=== PATIENT | male | born 1945 | race Caucasian/White ===

== ENCOUNTER 2018-01-19 21:09 | Observation (INO) | payer OTHER ==
[~2018-01-19] VITALS: Ht 180.3 cm; Wt 66.3 kg
[~2018-01-19 21:09] MED LIST: ACET325; AMLO5 PO; ASCO500; ASPI325; ATEN25; BISA10S; CHOL10002; CLOP75 PO; DOCU100; DOCU100 PO; ENOX100I; ENOX80I SC; FENT100TP; FENT50TP TOP; FENT75TP; FISH1000 PO; FLUO20; HYDACE10B PO; HYDR1TAB94 PO; LOVA20; LOVA40; LOVENOX; MORPHINE; MULVITMIND; NICO21TP; NORT25; OMEG1CAP30 PO; OXYC5; OXYC5 PO; PANT40 PO; POLY17UD PO; PRAV20 PO; PRED10; PREG300 PO; RANI150; TRAZ50; VARE1 PO; WARF5; [UNRECOGNIZED DRUG - REMARK]
[2018-01-19 21:37] LABS: Hematocrit 49.1 % (37.0-53.0); Mean Corpuscular HGB 30.1 pg (26.0-34.0); Mean Corpuscular HGB Conc 34.6 g/dL (31.5-36.5); Mean Corpuscular Volume 87 fL (80-100); Mean Platelet Volume 9.8 fL (9.1-12.4); Platelet Count 310 K/mm3 (150-400); RDW Coefficient Variation 12.5 % (11.7-14.2); RDW Standard Deviation 39.8 fL (35.1-46.3); Red Blood Cell Count 5.65 M/mm3 (4.30-5.90); White Blood Cell Count 13.24 K/mm3 (4.00-11.30)
[2018-01-19 21:55] LABS: Albumin, Blood 4.4 g/dL (3.4-5.0); Albumin/Globulin Ratio 1.1 (0.8-1.8); Bilirubin, Total 0.5 mg/dL (0.1-1.0); Bun/Creatinine Ratio 19.7 (12.0-20.0); Calcium, Blood 9.8 mg/dL (8.5-10.1); Creatinine, Blood 1.83 mg/dL (0.60-1.20); Globulin, Blood 4.1 g/dL (2.2-4.0); Potassium, Blood 4.4 mmol/L (3.5-5.5); Total Protein, Blood 8.5 g/dL (6.4-8.2)
[2018-01-19 21:56] LABS: BASOPHILS ABSOLUTE MAN 0.13 K/mm3 (0.00-0.23); BASOPHILS PERCENT MAN 1 % (0-2); EOSINOPHILS PERCENT MAN 0 % (0-6); LYMPHOCYTES ABSOLUTE MAN 1.32 K/mm3 (0.84-5.20); LYMPHOCYTES PERCENT MAN 10 % (21-46); MONOCYTES PERCENT MAN 0 % (4-13); NEUTROPHILS ABSOLUTE MAN 11.78 K/mm3 (1.96-9.15); SEG NEUTROPHILS PERCENT MAN 89 % (41-73); TOTAL CELLS COUNTED 100
[2018-01-19 22:39] LABS: Source, Urine Clean Catch
[2018-01-19 22:43] LABS: Bilirubin, Urine Neg (Neg); Blood, Urine 1+ (Neg); Glucose Qualitative, Urine Neg (Neg); Ketones, Urine 2+ (Neg); Leukocyte Esterase, Urine Neg (Neg); Nitrite, Urine Neg (Neg); Protein, Urine 2+ (Neg); Specific Gravity, Urine 1.025 (1.003-1.022); Urobilinogen, Urine 1+ (Normal)
[2018-01-19 23:06] LABS: Appearance, Urine Hazy (Clear); Color, Urine Yellow (P-Yellow); Red Blood Cells, Urine 0-2 /hpf (0-2); Squamous Epithelial Cells Mod /hpf (Few); White Blood Cells, Urine 0-2 /hpf (0-5)
[2018-01-19 23:07] LABS: Amorphous Light (0-Heavy); Bacteria Few /hpf; Hyaline Casts 25-50 /lpf (0-2); Mucus Light (0-Heavy)
[2018-01-20 03:32] LABS: Hematocrit 47.4 % (37.0-53.0); Hemoglobin 16.4 g/dL (13.5-17.5); Mean Corpuscular HGB 30.2 pg (26.0-34.0); Mean Corpuscular HGB Conc 34.6 g/dL (31.5-36.5); Mean Corpuscular Volume 87 fL (80-100); Mean Platelet Volume 9.6 fL (9.1-12.4); Platelet Count 263 K/mm3 (150-400); RDW Coefficient Variation 12.6 % (11.7-14.2); Red Blood Cell Count 5.43 M/mm3 (4.30-5.90); White Blood Cell Count 9.31 K/mm3 (4.00-11.30)
[2018-01-20 03:59] LABS: Albumin, Blood 4.1 g/dL (3.4-5.0); Albumin/Globulin Ratio 1.1 (0.8-1.8); Bilirubin, Total 0.5 mg/dL (0.1-1.0); Bun/Creatinine Ratio 22.1 (12.0-20.0); Calcium, Blood 9.1 mg/dL (8.5-10.1); Creatinine, Blood 1.63 mg/dL (0.60-1.20); Globulin, Blood 3.9 g/dL (2.2-4.0); Potassium, Blood 4.7 mmol/L (3.5-5.5)
[2018-01-20] MEDS ORDERED: GABA100 PO (06:51)
[2018-01-20] MEDS ORDERED: ATOR10 PO (06:52)
[2018-01-20] MEDS ORDERED: DOC250 PO (06:53)
[2018-01-20] MEDS ORDERED: Lisinopril2.5 MG PO (06:54)
[2018-01-20] MEDS ORDERED: Ranitidine HCl150 M1 PO (06:55)
[2018-01-20] MEDS ORDERED: CHOL10002 PO (06:56)
[2018-01-20 11:37] LABS: U Amphetamine Screen Not Detected; U Barbituate Screen Not Detected; U Benzodiazapine Screen Not Detected; U Buprenorphine Screen Not Detected; U Cannabinoids Screen DETECTED; U Cocaine Screen Not Detected; U Methadone Screen Not Detected; U Methamphetamine Screen Not Detected; U Opiates Screen DETECTED; U Oxycodone Screen Not Detected; U Phencyclidine Screen Not Detected; U Propoxyphene Screen Not Detected
== END 2018-01-21 11:48 | disposition home or self-care (01) ==
LOC: ER 21:09 → MEDS 21:10 → ENPENDDIS 01-21 09:56 → MEDS 01-21 11:48
PROVIDERS: Emergency Medicine; Internal Medicine
DX: R11.2 Nausea with vomiting, unspecified (principal); R10.31 Right lower quadrant pain; E86.0 Dehydration; N17.9 Acute kidney failure, unspecified; N18.2 Chronic kidney disease, stage 2 (mild); I25.10 Atherosclerotic heart disease of native coronary artery without angina pectoris; E78.5 Hyperlipidemia, unspecified; Z86.73 Personal history of transient ischemic attack (TIA), and cerebral infarction without residual deficits; Z79.899 Other long term (current) drug therapy; Z79.01 Long term (current) use of anticoagulants; Z79.02 Long term (current) use of antithrombotics/antiplatelets; Z88.8 Allergy status to other drugs, medicaments and biological substances
CPT/HCPCS: 36415; 74176; 80053; 81001; 83605; 83690; 84145; 85025; 85027; 96361; 96372; 96374; 96375; 96376; 99285-25; G0378; J1650; J2405; J2765; J3010; J7030

== ENCOUNTER 2020-07-04 15:35 | Inpatient (IN) | payer OTHER ==
[~2020-07-04] VITALS: Ht 182.9 cm; Wt 67.2 kg
[~2020-07-04 15:35] MED LIST changes: +ONDA4ODT MM; +Ranitidine HCl150 M1 PO; +Vitamin D2000 UNIT PO
[2020-07-04 16:10] LABS: BASOPHILS ABSOLUTE AUTO 0.04 K/mm3 (0.00-0.23); BASOPHILS PERCENT AUTO 0 % (0-2); EOSINOPHILS ABSOLUTE AUTO 0.04 K/mm3 (0.00-0.68); EOSINOPHILS PERCENT AUTO 0 % (0-6); Hematocrit 30.2 % (37.0-53.0); Hemoglobin 10.1 g/dL (13.5-17.5); IMMATURE GRAN ABSOLUTE AUTO 0.07 K/mm3 (0.00-0.10); IMMATURE GRAN PERCENT AUTO 1 % (0-1); LYMPHOCYTES ABSOLUTE AUTO 2.01 K/mm3 (0.84-5.20); LYMPHOCYTES PERCENT AUTO 19 % (21-46); MONOCYTES ABSOLUTE AUTO 0.64 K/mm3 (0.16-1.47); MONOCYTES PERCENT AUTO 6 % (4-13); Mean Corpuscular HGB 29.9 pg (26.0-34.0); Mean Corpuscular HGB Conc 33.4 g/dL (31.5-36.5); Mean Corpuscular Volume 89 fL (80-100); Mean Platelet Volume 9.5 fL (9.1-12.4); NEUTROPHILS ABSOLUTE AUTO 7.67 K/mm3 (1.96-9.15); NEUTROPHILS PERCENT AUTO 73 % (41-73); Platelet Count 349 K/mm3 (150-400); RDW Coefficient Variation 12.5 % (11.7-14.2); RDW Standard Deviation 40.9 fL (35.1-46.3); Red Blood Cell Count 3.38 M/mm3 (4.30-5.90); White Blood Cell Count 10.47 K/mm3 (4.00-11.30)
[2020-07-04 16:31] LABS: Alanine Aminotransfer (ALT/SGP 18 U/L (12-78); Albumin, Blood 3.2 g/dL (3.4-5.0); Albumin/Globulin Ratio 0.7 (0.8-1.8); Alk Phos 62 U/L (50-136); Anion Gap 9 mmol/L (6-16); Aspartate Aminotrans (AST/SGOT 13 U/L (12-37); Bilirubin, Total 0.6 mg/dL (0.1-1.0); Blood Urea Nitrogen 19 mg/dL (8-24); Bun/Creatinine Ratio 15.8 (12.0-20.0); CO2, Blood 28 mmol/L (21-32); Calcium, Blood 9.2 mg/dL (8.5-10.1); Chloride, Blood 100 mmol/L (98-108); Globulin, Blood 4.3 g/dL (2.2-4.0); Glomerular Filtration Rate >60 (60-); Glucose, Blood 133 mg/dL (70-99); Potassium, Blood 3.8 mmol/L (3.5-5.5); Sodium, Blood 137 mmol/L (136-145); Total Protein, Blood 7.5 g/dL (6.4-8.2); Troponin I <0.015 ng/mL (0.000-0.040)
[2020-07-04 16:45] LABS: Source, Urine Catheter
[2020-07-04 16:48] LABS: Appearance, Urine Clear (Clear); Bilirubin, Urine Neg (Neg); Blood, Urine Neg (Neg); Color, Urine Yellow (P-Yellow); Glucose Qualitative, Urine Neg (Neg); Ketones, Urine 1+ (Neg); Leukocyte Esterase, Urine 1+ (Neg); Nitrite, Urine Neg (Neg); Protein, Urine 2+ (Neg); Specific Gravity, Urine 1.025 (1.003-1.022); Urobilinogen, Urine 1+ (Normal)
[2020-07-04 16:57] LABS: Squamous Epithelial Cells Few /hpf (Few)
[2020-07-04 16:59] LABS: Bacteria Few /hpf; Mucus Light (0-Heavy)
--- NOTE | 2020-07-05 04:41 | NUR ---
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 ABD DISTENDED AND TENDER, SEE PICTURES IN CHART. ILEOSTOMY IN PLACE. MEDICATED FOR PAIN X1. VSS, NO ACUTE CHANGES AT THIS TIME. BED IN LOWEST POSITION WITH CALL LIGHT IN REACH. WILL CONTINUE TO MONITOR AND REPORT TO ONCOMING RN.
[2020-07-05 04:55] LABS: BASOPHILS ABSOLUTE AUTO 0.04 K/mm3 (0.00-0.23); BASOPHILS PERCENT AUTO 0 % (0-2); EOSINOPHILS ABSOLUTE AUTO 0.01 K/mm3 (0.00-0.68); EOSINOPHILS PERCENT AUTO 0 % (0-6); Hematocrit 30.3 % (37.0-53.0); Hemoglobin 10.3 g/dL (13.5-17.5); IMMATURE GRAN ABSOLUTE AUTO 0.03 K/mm3 (0.00-0.10); IMMATURE GRAN PERCENT AUTO 0 % (0-1); LYMPHOCYTES ABSOLUTE AUTO 1.66 K/mm3 (0.84-5.20); LYMPHOCYTES PERCENT AUTO 18 % (21-46); MONOCYTES ABSOLUTE AUTO 0.47 K/mm3 (0.16-1.47); MONOCYTES PERCENT AUTO 5 % (4-13); Mean Corpuscular HGB 30.3 pg (26.0-34.0); Mean Corpuscular Volume 89 fL (80-100); Mean Platelet Volume 9.4 fL (9.1-12.4); NEUTROPHILS PERCENT AUTO 76 % (41-73); Platelet Count 332 K/mm3 (150-400); RDW Coefficient Variation 12.7 % (11.7-14.2); RDW Standard Deviation 41.4 fL (35.1-46.3); White Blood Cell Count 9.31 K/mm3 (4.00-11.30)
[2020-07-05 05:51] LABS: Alanine Aminotransfer (ALT/SGP 18 U/L (12-78); Albumin, Blood 3.1 g/dL (3.4-5.0); Albumin/Globulin Ratio 0.7 (0.8-1.8); Alk Phos 61 U/L (50-136); Anion Gap 10 mmol/L (6-16); Aspartate Aminotrans (AST/SGOT 11 U/L (12-37); Bilirubin, Total 0.7 mg/dL (0.1-1.0); Blood Urea Nitrogen 22 mg/dL (8-24); Bun/Creatinine Ratio 16.8 (12.0-20.0); CO2, Blood 27 mmol/L (21-32); Calcium, Blood 9.4 mg/dL (8.5-10.1); Chloride, Blood 99 mmol/L (98-108); Creatinine, Blood 1.31 mg/dL (0.60-1.20); Ferritin, Serum 163 ng/mL (26-388); Globulin, Blood 4.5 g/dL (2.2-4.0); Glomerular Filtration Rate 57 (60-); Glucose, Blood 119 mg/dL (70-99); Iron Serum 30 ug/dL (65-175); Percent Saturation 11.7 % (20.0-50.0); Potassium, Blood 4.1 mmol/L (3.5-5.5); Sodium, Blood 136 mmol/L (136-145); Total Iron Binding Capacity 256 ug/dL (250-450); Total Protein, Blood 7.6 g/dL (6.4-8.2); Troponin I <0.015 ng/mL (0.000-0.040)
[2020-07-05] MEDS ORDERED: CEFD300 PO (13:49)
--- NOTE | 2020-07-05 14:22 | NUR ---
PT DISCHARGED THE PT AND HIS CAREGIVER VERBALIZED UNDERSTANDING OF THE DC INSTRUCTIONS, THE [facility] PER [facility] REQUEST, PT WAS REMINDED TO SCHEDULE A FOLLOW UP APPOINTMENT WITH THE [facility] FOR [facility] REVIEW, THE PT WAS AT 99% O2 SAT'S AT THE TIME OF DC AT REST, PT WAS TRANSFERED VIA WHEELCHAIR ACCOMPANIED BY THE PAIRER, BELONGINGS RELEASED TO HIS CAREGIVER
[2020-07-25] MEDS ORDERED: ALBU90OI INH (14:25)
[2020-07-25] MEDS ORDERED: ASCO500 PO (14:26)
[2020-07-25] MEDS ORDERED: ATOR10 PO (14:26)
[2020-07-25] MEDS ORDERED: VITAMIN D325 MC3 PO (14:27)
[2020-07-25] MEDS ORDERED: CLOP75 PO (14:27)
[2020-07-25] MEDS ORDERED: DOC250 PO (14:29)
[2020-07-25] MEDS ORDERED: GABA100 PO (14:29)
[2020-07-25] MEDS ORDERED: PANT20 PO (14:30)
[2020-07-25] MEDS ORDERED: FENTANYL1 EAC7 TOP (14:30)
[2020-07-25] MEDS ORDERED: Lisinopril2.5 MG PO (14:30)
[2020-07-25] MEDS ORDERED: ENOX60I SC (14:31)
[2020-07-25] MEDS ORDERED: CYAN500 PO (14:31)
[2020-07-25] MEDS ORDERED: GUAI600T33 PO (14:32)
[2020-07-25] MEDS ORDERED: Norco 10-325 T1 EACH PO (14:32)
[2020-07-25] MEDS ORDERED: WARF7.5 PO (14:34)
[2020-07-25] MEDS ORDERED: ZOLOFT50 MG PO (14:35)
[2020-07-25] MEDS ORDERED: SENN187 PO (14:36)
== END 2020-07-05 14:20 | disposition home or self-care (01) | DRG 178 ==
LOC: EDBD 15:35 → ER 15:35 → MEDS 21:32
PROVIDERS: Physician Assistant; ADMIT Internal Medicine
DX: J15.6 Pneumonia due to other Gram-negative bacteria (principal); D68.61 Antiphospholipid syndrome; M96.841 Postprocedural hematoma of a musculoskeletal structure following other procedure; E46 Unspecified protein-calorie malnutrition; Z68.20 Body mass index [BMI] 20.0-20.9, adult; I12.9 Hypertensive chronic kidney disease with stage 1 through stage 4 chronic kidney disease, or unspecified chronic kidney disease; N18.9 Chronic kidney disease, unspecified; I25.10 Atherosclerotic heart disease of native coronary artery without angina pectoris; D63.1 Anemia in chronic kidney disease; Z23 Encounter for immunization; F12.90 Cannabis use, unspecified, uncomplicated; E78.5 Hyperlipidemia, unspecified; J45.909 Unspecified asthma, uncomplicated; D50.9 Iron deficiency anemia, unspecified; Z91.018 Allergy to other foods; Z86.73 Personal history of transient ischemic attack (TIA), and cerebral infarction without residual deficits; Z93.2 Ileostomy status; Z98.890 Other specified postprocedural states; Z87.891 Personal history of nicotine dependence; Z90.49 Acquired absence of other specified parts of digestive tract; Y83.8 Other surgical procedures as the cause of abnormal reaction of the patient, or of later complication, without mention of misadventure at the time of the procedure
CPT/HCPCS: 36415; 71046; 74176; 80053; 81001; 82728; 83540; 83550; 83605; 84145; 84484; 85025; 85651; 87040; 87086; 93005; 93010; 96365; 96375; 99285-25; A9270; C9113; J0696; J1170; J1650; Q2038

== ENCOUNTER 2020-08-14 13:54 | Emergency (ER) | payer OTHER ==
[~2020-08-14] VITALS: Ht 182.9 cm; Wt 68.0 kg
[~2020-08-14 13:54] MED LIST changes: +ALBU90OI INH; +ASCO500 PO; +ATOR10 PO; +CEFD300 PO; +CYAN500 PO; +DOC250 PO; +ENOX60I SC; +FENTANYL1 EAC7 TOP; +GABA100 PO; +GUAI600T33 PO; +Lisinopril2.5 MG PO; +Norco 10-325 T1 EACH PO; +PANT20 PO; +SENN187 PO; +VITAMIN D325 MC3 PO; +WARF7.5 PO; +ZOLOFT50 MG PO
[2020-08-14 14:39] LABS: BASOPHILS ABSOLUTE AUTO 0.05 K/mm3 (0.00-0.23); BASOPHILS PERCENT AUTO 1 % (0-2); EOSINOPHILS ABSOLUTE AUTO 0.03 K/mm3 (0.00-0.68); EOSINOPHILS PERCENT AUTO 0 % (0-6); Hematocrit 42.3 % (37.0-53.0); Hemoglobin 13.5 g/dL (13.5-17.5); IMMATURE GRAN ABSOLUTE AUTO 0.01 K/mm3 (0.00-0.10); IMMATURE GRAN PERCENT AUTO 0 % (0-1); LYMPHOCYTES ABSOLUTE AUTO 1.98 K/mm3 (0.84-5.20); LYMPHOCYTES PERCENT AUTO 29 % (21-46); MONOCYTES ABSOLUTE AUTO 0.36 K/mm3 (0.16-1.47); MONOCYTES PERCENT AUTO 5 % (4-13); Mean Corpuscular HGB 28.5 pg (26.0-34.0); Mean Corpuscular HGB Conc 31.9 g/dL (31.5-36.5); Mean Corpuscular Volume 89 fL (80-100); Mean Platelet Volume 9.3 fL (9.1-12.4); NEUTROPHILS ABSOLUTE AUTO 4.49 K/mm3 (1.96-9.15); NEUTROPHILS PERCENT AUTO 65 % (41-73); Platelet Count 362 K/mm3 (150-400); RDW Coefficient Variation 13.6 % (11.7-14.2); RDW Standard Deviation 44.7 fL (35.1-46.3); Red Blood Cell Count 4.73 M/mm3 (4.30-5.90); White Blood Cell Count 6.92 K/mm3 (4.00-11.30)
[2020-08-14 14:54] LABS: Alanine Aminotransfer (ALT/SGP 27 U/L (12-78); Albumin/Globulin Ratio 1.2 (0.8-1.8); Alk Phos 83 U/L (50-136); Anion Gap 5 mmol/L (6-16); Aspartate Aminotrans (AST/SGOT 19 U/L (12-37); Bilirubin, Total 0.3 mg/dL (0.1-1.0); Blood Urea Nitrogen 18 mg/dL (8-24); Bun/Creatinine Ratio 15.7 (12.0-20.0); CO2, Blood 28 mmol/L (21-32); Chloride, Blood 104 mmol/L (98-108); Creatinine, Blood 1.15 mg/dL (0.60-1.20); Globulin, Blood 3.4 g/dL (2.2-4.0); Glomerular Filtration Rate >60 (60-); Glucose, Blood 107 mg/dL (70-99); Potassium, Blood 3.9 mmol/L (3.5-5.5); Sodium, Blood 137 mmol/L (136-145); Total Protein, Blood 7.4 g/dL (6.4-8.2)
[2020-08-14] MEDS ORDERED: MAGCIT300 PO ×2 (16:46→16:52)
== END 2020-08-14 17:21 | disposition home or self-care (01) ==
LOC: ER 13:54
PROVIDERS: Physician Assistant
DX: K59.00 Constipation, unspecified (principal); Z79.01 Long term (current) use of anticoagulants; Z79.899 Other long term (current) drug therapy; Z91.018 Allergy to other foods
CPT/HCPCS: 36415; 74177; 80053; 83690; 85025; 99284-25; Q9967

== ENCOUNTER 2021-01-02 13:58 | Emergency (ER) | payer OTHER ==
[~2021-01-02] VITALS: Ht 175.3 cm; Wt 68.0 kg
[~2021-01-02 13:58] MED LIST changes: +MAGCIT300 PO
[2021-01-02 14:37] LABS: BASOPHILS ABSOLUTE AUTO 0.05 K/mm3 (0.00-0.23); BASOPHILS PERCENT AUTO 1 % (0-2); EOSINOPHILS ABSOLUTE AUTO 0.01 K/mm3 (0.00-0.68); EOSINOPHILS PERCENT AUTO 0 % (0-6); Hematocrit 47.8 % (37.0-53.0); Hemoglobin 16.7 g/dL (13.5-17.5); IMMATURE GRAN ABSOLUTE AUTO 0.07 K/mm3 (0.00-0.10); IMMATURE GRAN PERCENT AUTO 1 % (0-1); LYMPHOCYTES ABSOLUTE AUTO 1.87 K/mm3 (0.84-5.20); LYMPHOCYTES PERCENT AUTO 17 % (21-46); MONOCYTES ABSOLUTE AUTO 0.74 K/mm3 (0.16-1.47); MONOCYTES PERCENT AUTO 7 % (4-13); Mean Corpuscular HGB 29.4 pg (26.0-34.0); Mean Corpuscular HGB Conc 34.9 g/dL (31.5-36.5); Mean Corpuscular Volume 84 fL (80-100); Mean Platelet Volume 9.7 fL (9.1-12.4); NEUTROPHILS ABSOLUTE AUTO 8.23 K/mm3 (1.96-9.15); NEUTROPHILS PERCENT AUTO 75 % (41-73); Platelet Count 294 K/mm3 (150-400); RDW Coefficient Variation 13.1 % (11.7-14.2); RDW Standard Deviation 40.2 fL (35.1-46.3); Red Blood Cell Count 5.68 M/mm3 (4.30-5.90); White Blood Cell Count 10.97 K/mm3 (4.00-11.30)
[2021-01-02 14:51] LABS: Albumin, Blood 3.9 g/dL (3.4-5.0); Bilirubin, Total 0.9 mg/dL (0.1-1.0); Calcium, Blood 9.5 mg/dL (8.5-10.1); Creatinine, Blood 1.64 mg/dL (0.60-1.20); Globulin, Blood 3.8 g/dL (2.2-4.0); Potassium, Blood 3.8 mmol/L (3.5-5.5); Total Protein, Blood 7.7 g/dL (6.4-8.2)
== END 2021-01-02 20:10 | disposition home or self-care (01) ==
LOC: ER 13:58
PROVIDERS: Anesthesiology
DX: R10.31 Right lower quadrant pain (principal); I10 Essential (primary) hypertension; E78.5 Hyperlipidemia, unspecified; I25.10 Atherosclerotic heart disease of native coronary artery without angina pectoris; D50.9 Iron deficiency anemia, unspecified; K21.9 Gastro-esophageal reflux disease without esophagitis; Z86.73 Personal history of transient ischemic attack (TIA), and cerebral infarction without residual deficits; Z79.899 Other long term (current) drug therapy; Z79.02 Long term (current) use of antithrombotics/antiplatelets; Z88.8 Allergy status to other drugs, medicaments and biological substances; Z93.3 Colostomy status
CPT/HCPCS: 36415; 74177; 80053; 85025; 93005; 93010; 96361; 96374; 99285-25; A9270; J3010; J7120; Q9967

== ENCOUNTER 2021-02-26 17:36 | Observation (INO) | payer OTHER ==
[~2021-02-26] VITALS: Ht 182.9 cm; Wt 67.8 kg
[2021-02-26 18:20] LABS: BASOPHILS ABSOLUTE AUTO 0.04 K/mm3 (0.00-0.23); BASOPHILS PERCENT AUTO 0 % (0-2); EOSINOPHILS PERCENT AUTO 0 % (0-6); Hematocrit 46.9 % (37.0-53.0); Hemoglobin 16.5 g/dL (13.5-17.5); IMMATURE GRAN ABSOLUTE AUTO 0.05 K/mm3 (0.00-0.10); IMMATURE GRAN PERCENT AUTO 1 % (0-1); LYMPHOCYTES ABSOLUTE AUTO 1.99 K/mm3 (0.84-5.20); LYMPHOCYTES PERCENT AUTO 19 % (21-46); MONOCYTES ABSOLUTE AUTO 0.63 K/mm3 (0.16-1.47); MONOCYTES PERCENT AUTO 6 % (4-13); Mean Corpuscular HGB 30.3 pg (26.0-34.0); Mean Corpuscular HGB Conc 35.2 g/dL (31.5-36.5); Mean Corpuscular Volume 86 fL (80-100); Mean Platelet Volume 9.7 fL (9.1-12.4); NEUTROPHILS ABSOLUTE AUTO 8.05 K/mm3 (1.96-9.15); NEUTROPHILS PERCENT AUTO 75 % (41-73); Platelet Count 424 K/mm3 (150-400); RDW Coefficient Variation 12.4 % (11.7-14.2); RDW Standard Deviation 39.1 fL (35.1-46.3); Red Blood Cell Count 5.44 M/mm3 (4.30-5.90); White Blood Cell Count 10.76 K/mm3 (4.00-11.30)
[2021-02-26 18:20] LABS: Source, Urine Clean Catch
[2021-02-26 18:37] LABS: Albumin, Blood 4.1 g/dL (3.4-5.0); Bilirubin, Total 0.6 mg/dL (0.1-1.0); Bun/Creatinine Ratio 28.2 (12.0-20.0); Creatinine, Blood 1.31 mg/dL (0.60-1.20); Globulin, Blood 4.3 g/dL (2.2-4.0); Potassium, Blood 4.9 mmol/L (3.5-5.5); Total Protein, Blood 8.4 g/dL (6.4-8.2)
[2021-02-26 18:42] LABS: Appearance, Urine Bloody (Clear); Bilirubin, Urine Neg (Neg); Blood, Urine 5+ (Neg); Color, Urine Red (P-Yellow); Glucose Qualitative, Urine Neg (Neg); Ketones, Urine Neg (Neg); Leukocyte Esterase, Urine Neg (Neg); Nitrite, Urine Neg (Neg); Protein, Urine 4+ (Neg); Urobilinogen, Urine NORM (Normal); pH, Urine 6.5 (5.0-8.0)
[2021-02-26 18:51] LABS: White Blood Cells, Urine 25-50 /hpf (0-5)
[2021-02-26 18:52] LABS: Bacteria Few /hpf; Red Blood Cells, Urine TNTC /hpf (0-2); Squamous Epithelial Cells Rare /hpf (Few)
[2021-02-26 21:04] LABS: Prothrombin Time Results >90.0 Sec (9.7-11.5)
[2021-02-26 21:05] LABS: International Normalized Ratio >10.00
[2021-02-26] MEDS ORDERED: lisinopril (21:57)
[2021-02-26] MEDS ORDERED: cyclobenzaprine (21:58)
--- NOTE | 2021-02-27 00:44 | NUR ---
ADMISSION NOTE: RECEIVED PT FROM ER VIA STRETCHER AAO. RESP EVEN AND UNLABORED. C/O OF ABD PAIN. COLOSTOMY TO RIGHT UPPER ABD QUADRANT DRAINING BROWN STOOL. PT WAS MEDICATED IN ER WITH MINIMAL RELIEF. DR. CANDELARIO NOTIFIED. MED FREQUENCY CHANGED FOR COMFORT. ORIENTED PT TO SURROUNDINGS. CALL LIGHT WITHIN REACH. WILL CONTINUE TO MONITOR.
--- NOTE | 2021-02-27 03:39 | NUR ---
PT REPORT FEELING BETTER AFTER OXYCODONE DOSE. DENIES ABD PAIN AT THIS TIME. IVF PATENTLY INFUSING. NO N/V DURING SHIFT. RIGHT COLOSTOMY PATENT AND EMPTIED TWICE. CALL LIGHT WITHIN REACH. SAFETY AND COMFORT MEASURES MAINTAINED.
[2021-02-27 04:33] LABS: BASOPHILS ABSOLUTE AUTO 0.03 K/mm3 (0.00-0.23); BASOPHILS PERCENT AUTO 0 % (0-2); EOSINOPHILS ABSOLUTE AUTO 0.01 K/mm3 (0.00-0.68); EOSINOPHILS PERCENT AUTO 0 % (0-6); Hematocrit 40.2 % (37.0-53.0); IMMATURE GRAN ABSOLUTE AUTO 0.06 K/mm3 (0.00-0.10); IMMATURE GRAN PERCENT AUTO 1 % (0-1); LYMPHOCYTES ABSOLUTE AUTO 1.96 K/mm3 (0.84-5.20); LYMPHOCYTES PERCENT AUTO 20 % (21-46); MONOCYTES ABSOLUTE AUTO 0.68 K/mm3 (0.16-1.47); MONOCYTES PERCENT AUTO 7 % (4-13); Mean Corpuscular HGB 30.6 pg (26.0-34.0); Mean Corpuscular HGB Conc 34.8 g/dL (31.5-36.5); Mean Corpuscular Volume 88 fL (80-100); Mean Platelet Volume 9.6 fL (9.1-12.4); NEUTROPHILS ABSOLUTE AUTO 7.22 K/mm3 (1.96-9.15); NEUTROPHILS PERCENT AUTO 73 % (41-73); Platelet Count 321 K/mm3 (150-400); RDW Coefficient Variation 12.5 % (11.7-14.2); RDW Standard Deviation 40.2 fL (35.1-46.3); Red Blood Cell Count 4.58 M/mm3 (4.30-5.90); White Blood Cell Count 9.96 K/mm3 (4.00-11.30)
[2021-02-27 04:51] LABS: International Normalized Ratio 1.39
[2021-02-27 04:56] LABS: Albumin, Blood 3.3 g/dL (3.4-5.0); Anion Gap 5 mmol/L (6-16); Blood Urea Nitrogen 32 mg/dL (8-24); Bun/Creatinine Ratio 26.7 (12.0-20.0); CO2, Blood 27 mmol/L (21-32); Calcium, Blood 9.2 mg/dL (8.5-10.1); Chloride, Blood 101 mmol/L (98-108); Glomerular Filtration Rate 59 (60-); Glucose, Blood 108 mg/dL (70-99); Phosphorus, Blood 3.8 mg/dL (2.5-4.9); Potassium, Blood 4.4 mmol/L (3.5-5.5); Sodium, Blood 133 mmol/L (136-145)
[2021-02-27 05:26] LABS: Prothrombin Time Results 14.3 Sec (9.7-11.5)
--- NOTE | 2021-02-27 08:13 | NUR ---
PT RECIEVEDIN BED, VITALS WNL,NO ACUTE DISTRESS NOTED,MEDICATED FOR ABD PAIN / PER REQUEST, WET COUGH NOTED, COLOSTOMY BAG IN PLACE, BLACK WATERY STOOL NOTED,PT WANTS TO DO HIS ACRE OF COLOSTOMY. ENCOURAGED TO SEEK HELP IF NEEDED.CALL LIGHT IN PLACE, MONITORING CONT.
[2021-02-27 09:42] LABS: Influenza A, PCR NEGATIVE (NEGATIVE); Influenza B, PCR NEGATIVE (NEGATIVE); Resp Syncytial Virus, PCR NEGATIVE (NEGATIVE); SARS-Cov-2 (COVID-19) PCR, MMC NEGATIVE (NEGATIVE)
[2021-02-27] MEDS ORDERED: Vitamin D1000 UNI1 PO (11:05)
[2021-02-27] MEDS ORDERED: XARELTO20 MG PO (11:05)
--- NOTE | 2021-02-27 14:51 | NUR ---
PT AAOX4, MEDICATED FOR PAIN PRIOR TO D/C'D HOME, PT LEFT FACILITY VIA W/C ACCOMPANY BY STAFF AND BROTHER WHO IS DRIVING HOME WITH HIM.D/C'D INSTRUCTIONS GIVEN AND PT VERBALISED UNDERSTANDING.
== END 2021-02-27 14:22 | disposition home or self-care (01) ==
LOC: ER 17:36 → MEDS 17:37 → ER 22:53 → MEDS 22:58
PROVIDERS: Internal Medicine; Physician Assistant; Student in an Organized Health Care Education/Training Program; ADMIT Internal Medicine
DX: D68.32 Hemorrhagic disorder due to extrinsic circulating anticoagulants (principal); R31.0 Gross hematuria; T45.515A Adverse effect of anticoagulants, initial encounter; D68.61 Antiphospholipid syndrome; R11.2 Nausea with vomiting, unspecified; F12.20 Cannabis dependence, uncomplicated; K59.09 Other constipation; I25.2 Old myocardial infarction; I73.9 Peripheral vascular disease, unspecified; I25.10 Atherosclerotic heart disease of native coronary artery without angina pectoris; E78.5 Hyperlipidemia, unspecified; K21.9 Gastro-esophageal reflux disease without esophagitis; E87.1 Hypo-osmolality and hyponatremia; N17.9 Acute kidney failure, unspecified; K43.9 Ventral hernia without obstruction or gangrene; I12.9 Hypertensive chronic kidney disease with stage 1 through stage 4 chronic kidney disease, or unspecified chronic kidney disease; N18.30 Chronic kidney disease, stage 3 unspecified; E86.0 Dehydration; E43 Unspecified severe protein-calorie malnutrition; J44.9 Chronic obstructive pulmonary disease, unspecified; G89.4 Chronic pain syndrome; F44.4 Conversion disorder with motor symptom or deficit; Z79.02 Long term (current) use of antithrombotics/antiplatelets; Z79.01 Long term (current) use of anticoagulants; Z91.018 Allergy to other foods; Z86.73 Personal history of transient ischemic attack (TIA), and cerebral infarction without residual deficits; Z87.891 Personal history of nicotine dependence; Z93.3 Colostomy status; Z66 Do not resuscitate; Z79.891 Long term (current) use of opiate analgesic; Z20.822 Contact with and (suspected) exposure to COVID-19; Z68.20 Body mass index [BMI] 20.0-20.9, adult
CPT/HCPCS: 0241U; 36415; 51798; 74177; 80053; 80069; 81001; 83605; 83690; 85025; 85610; 87086; 96365-59; 99285-25; A9270; J3430; J7030; Q9967

== ENCOUNTER 2021-03-08 15:05 | Inpatient (IN) | payer OTHER ==
[~2021-03-08] VITALS: Ht 180.3 cm; Wt 67.3 kg
[~2021-03-08 15:05] MED LIST changes: -ALBU90OI INH; -Norco 10-325 T1 EACH PO; -SENN187 PO; +Vitamin D1000 UNI1 PO; +XARELTO20 MG PO; -ZOLOFT50 MG PO; +cyclobenzaprine; +lisinopril
[2021-03-08 16:18] LABS: BASOPHILS ABSOLUTE AUTO 0.06 K/mm3 (0.00-0.23); BASOPHILS PERCENT AUTO 0 % (0-2); EOSINOPHILS ABSOLUTE AUTO 0.03 K/mm3 (0.00-0.68); EOSINOPHILS PERCENT AUTO 0 % (0-6); Hematocrit 46.8 % (37.0-53.0); IMMATURE GRAN ABSOLUTE AUTO 0.18 K/mm3 (0.00-0.10); IMMATURE GRAN PERCENT AUTO 1 % (0-1); LYMPHOCYTES PERCENT AUTO 13 % (21-46); MONOCYTES ABSOLUTE AUTO 0.82 K/mm3 (0.16-1.47); MONOCYTES PERCENT AUTO 4 % (4-13); Mean Corpuscular HGB 30.2 pg (26.0-34.0); Mean Corpuscular HGB Conc 34.2 g/dL (31.5-36.5); Mean Corpuscular Volume 88 fL (80-100); Mean Platelet Volume 10.2 fL (9.1-12.4); NEUTROPHILS ABSOLUTE AUTO 17.57 K/mm3 (1.96-9.15); NEUTROPHILS PERCENT AUTO 82 % (41-73); Platelet Count 185 K/mm3 (150-400); RDW Coefficient Variation 12.6 % (11.7-14.2); RDW Standard Deviation 40.9 fL (35.1-46.3); White Blood Cell Count 21.36 K/mm3 (4.00-11.30)
[2021-03-08 16:59] LABS: Alanine Aminotransfer (ALT/SGP 29 U/L (12-78); Albumin, Blood 3.9 g/dL (3.4-5.0); Alk Phos 82 U/L (50-136); Anion Gap 15 mmol/L (6-16); Aspartate Aminotrans (AST/SGOT 16 U/L (12-37); Bilirubin, Total 0.4 mg/dL (0.1-1.0); Blood Urea Nitrogen 49 mg/dL (8-24); Bun/Creatinine Ratio 15.9 (12.0-20.0); CO2, Blood 18 mmol/L (21-32); Calcium, Blood 10.1 mg/dL (8.5-10.1); Chloride, Blood 94 mmol/L (98-108); Creatinine, Blood 3.09 mg/dL (0.60-1.20); Globulin, Blood 3.9 g/dL (2.2-4.0); Glomerular Filtration Rate 20 (60-); Glucose, Blood 197 mg/dL (70-99); Potassium, Blood 4.4 mmol/L (3.5-5.5); Sodium, Blood 127 mmol/L (136-145); Total Protein, Blood 7.8 g/dL (6.4-8.2); Troponin I <0.015 ng/mL (0.000-0.040)
[2021-03-08 18:53] LABS: SARS-Cov-2 (COVID-19) PCR, MMC NEGATIVE (NEGATIVE)
[2021-03-08 21:30] LABS: International Normalized Ratio 2.54; Prothrombin Time Results 25.1 Sec (9.7-11.5)
[2021-03-08 21:45] LABS: Source, Urine Clean Catch
[2021-03-08 21:48] LABS: Bilirubin, Urine Neg (Neg); Blood, Urine Neg (Neg); Glucose Qualitative, Urine Neg (Neg); Ketones, Urine 1+ (Neg); Leukocyte Esterase, Urine 1+ (Neg); Nitrite, Urine Neg (Neg); Protein, Urine 2+ (Neg); Urobilinogen, Urine NORM (Normal)
[2021-03-08 21:54] LABS: Appearance, Urine Clear (Clear); Bacteria Mod /hpf; Color, Urine Amber (P-Yellow); Red Blood Cells, Urine 0-2 /hpf (0-2); Squamous Epithelial Cells Not Seen /hpf (Few)
[2021-03-09 06:11] LABS: Hematocrit 35.4 % (37.0-53.0); Hemoglobin 12.2 g/dL (13.5-17.5); Mean Corpuscular HGB Conc 34.5 g/dL (31.5-36.5); Mean Corpuscular Volume 87 fL (80-100); Platelet Count 142 K/mm3 (150-400); RDW Coefficient Variation 12.7 % (11.7-14.2); RDW Standard Deviation 40.8 fL (35.1-46.3); Red Blood Cell Count 4.06 M/mm3 (4.30-5.90); White Blood Cell Count 11.28 K/mm3 (4.00-11.30)
[2021-03-09 06:25] LABS: International Normalized Ratio 2.5; Prothrombin Time Results 24.7 Sec (9.7-11.5)
[2021-03-09 06:57] LABS: Bun/Creatinine Ratio 21.9 (12.0-20.0); Calcium, Blood 8.2 mg/dL (8.5-10.1); Creatinine, Blood 1.78 mg/dL (0.60-1.20); Potassium, Blood 4.1 mmol/L (3.5-5.5)
[2021-03-09] MEDS ORDERED: SENN187 PO (17:01)
[2021-03-09] MEDS ORDERED: ONDA4 PO (17:02)
[2021-03-09] MEDS ORDERED: MIRALAX17 GM PO (17:03)
[2021-03-09] MEDS ORDERED: Norco 10-325 T1 EACH PO ×2 (17:04→17:22)
[2021-03-09] MEDS ORDERED: CLOP75 PO (17:04)
[2021-03-09] MEDS ORDERED: FENTANYL1 EAC7 TOP (17:04)
[2021-03-09] MEDS ORDERED: Colace250 MG PO (17:05)
[2021-03-09] MEDS ORDERED: ATOR10 PO (17:05)
[2021-03-09] MEDS ORDERED: LISINOPRIL2.5 MG PO (17:05)
[2021-03-09] MEDS ORDERED: METO25ER PO (17:06)
[2021-03-09] MEDS ORDERED: ASCO500 PO (17:07)
[2021-03-09] MEDS ORDERED: SERT100 PO (17:08)
[2021-03-09] MEDS ORDERED: NARCAN4 M1 (17:10)
[2021-03-09] MEDS ORDERED: ALBU90OI INH (17:10)
[2021-03-09] MEDS ORDERED: WARF5 PO (17:11)
--- NOTE | 2021-03-09 18:43 | NUR ---
PATIENT ADMIT TO PCU AT 1619. ABLE TO STAND AND PIVOT TRANSFER WITH 2 PEOPLE. ABLE TO MOVE ALL EXTREMITIES. CLAIMS TO HAVE NUMBNESS AND TINGLING THROUGHOUT. OVERALL VERY WEAK. USES WHEELCHAIR AT BASELINE. CAREGIVERS AT HOME ASSIST PATIENT WITH DAILY NEEDS. ALEKSANDAR. ON ROOM AIR SATING MID 90'S. DENIES SOB. TELE SINUS RHYTHM WITH HR 80'S. VITAL SIGNS STABLE. DENIES CHEST PAIN/PRESSURE. NO SIGNS OF EDEMA. SEVERE DISTENTION TO ABDOMEN. COLOSTOMY IN PLACE. DRAINING BROWN/LIQUID. URINE OUTPUT WNL. EXTENSIVE SCARRING TO ABDOMEN AND EXTREMITIES. PATIENT STATES HE HAS HAD OVER 80 SURGERIES IN HIS LIFE. ORIENTED TO ROOM AND UNIT. NS RUNNING AT 125 ML/HR. CALL LIGHT IN REACH. WILL CONTINUE TO MONITOR AND REPORT OFF.
--- NOTE | 2021-03-10 02:47 | NUR ---
PT REPORTING ABDOMINAL PAIN. ADMINISTERED OXYCODONE 2X THIS SHIFT. SOFT SBP 90-110s. PT AGGREABLE TO HOLDING OXYCODONE UNTIL SBP IS OVER 100. RR WITHIN NORMAL, MENTATION WNL, EASILY TO AWAKE WITH VERBAL STIMULATION. DENIES N/V, VERY LOOSE OUTPUT FROM COLODOTMY.
[2021-03-10 03:37] LABS: Hematocrit 33.2 % (37.0-53.0); Hemoglobin 11.5 g/dL (13.5-17.5); Mean Corpuscular HGB 30.3 pg (26.0-34.0); Mean Corpuscular HGB Conc 34.6 g/dL (31.5-36.5); Mean Corpuscular Volume 88 fL (80-100); Mean Platelet Volume 9.1 fL (9.1-12.4); Platelet Count 135 K/mm3 (150-400); RDW Coefficient Variation 12.8 % (11.7-14.2); Red Blood Cell Count 3.79 M/mm3 (4.30-5.90); White Blood Cell Count 7.95 K/mm3 (4.00-11.30)
[2021-03-10 03:52] LABS: International Normalized Ratio 2.99; Prothrombin Time Results 29.2 Sec (9.7-11.5)
[2021-03-10 04:08] LABS: Magnesium, Blood 1.8 mg/dL (1.6-2.4); Thyroid Stimulating Hormone 0.049 uIU/mL (0.360-4.800)
[2021-03-10 04:16] LABS: Alanine Aminotransfer (ALT/SGP 20 U/L (12-78); Albumin, Blood 2.6 g/dL (3.4-5.0); Albumin/Globulin Ratio 0.9 (0.8-1.8); Alk Phos 50 U/L (50-136); Anion Gap 5 mmol/L (6-16); Aspartate Aminotrans (AST/SGOT 17 U/L (12-37); Bilirubin, Total 0.2 mg/dL (0.1-1.0); Blood Urea Nitrogen 26 mg/dL (8-24); Bun/Creatinine Ratio 22.2 (12.0-20.0); CO2, Blood 27 mmol/L (21-32); Calcium, Blood 8.1 mg/dL (8.5-10.1); Chloride, Blood 105 mmol/L (98-108); Creatinine, Blood 1.17 mg/dL (0.60-1.20); Glomerular Filtration Rate >60 (60-); Glucose, Blood 93 mg/dL (70-99); Potassium, Blood 3.9 mmol/L (3.5-5.5); Sodium, Blood 137 mmol/L (136-145)
[2021-03-10 04:38] LABS: Total Protein, Blood 5.6 g/dL (6.4-8.2)
[2021-03-10] MEDS ORDERED: FAMO20 PO (11:40)
[2021-03-10] MEDS ORDERED: LEVFLO500 PO (11:41)
[2021-03-10] MEDS ORDERED: HYOS0.375T PO (11:41)
--- NOTE | 2021-03-10 13:39 | NUR ---
PT DISCHARGED TO HOME WITH DISCHARGE ORDERS. PT TO FOLLOW-UP WITH THE VA, DISCHARGE INSTRUCTIONS DISCLOSED WITH THE PT AND THE BROTHER AT THE BEDSIDE. TO FINISH ANTIBIOTIC AT HOME. TO CONTINUE HOME MEDS. NO ISSUES REPORTED PRIOR TO DISCHARGE PT HAS BEEN INDEPENDENT EMPTYING COLOSTOMY BAG AND HAS BEEN USING URINAL AND BEDPAN FOR TOILETING. PT ACCOMPANIED VIA WHEELCHAIR, BROTHER CAME TO WOOD FINISHER THE PT.
== END 2021-03-10 13:14 | disposition home or self-care (01) | DRG 683 ==
LOC: ER 15:05 → ERHOLD 19:29 → PCU 03-09 16:24
PROVIDERS: Emergency Medicine; Internal Medicine; Physician Assistant; ADMIT Internal Medicine
DX: N17.9 Acute kidney failure, unspecified (principal); D68.61 Antiphospholipid syndrome; F11.20 Opioid dependence, uncomplicated; E87.2 Acidosis; E87.1 Hypo-osmolality and hyponatremia; N39.0 Urinary tract infection, site not specified; I10 Essential (primary) hypertension; Z20.822 Contact with and (suspected) exposure to COVID-19; E78.5 Hyperlipidemia, unspecified; I25.10 Atherosclerotic heart disease of native coronary artery without angina pectoris; I73.9 Peripheral vascular disease, unspecified; J45.909 Unspecified asthma, uncomplicated; D50.9 Iron deficiency anemia, unspecified; K21.9 Gastro-esophageal reflux disease without esophagitis; G89.4 Chronic pain syndrome; F17.210 Nicotine dependence, cigarettes, uncomplicated; K43.9 Ventral hernia without obstruction or gangrene; F12.20 Cannabis dependence, uncomplicated; R11.2 Nausea with vomiting, unspecified; B96.20 Unspecified Escherichia coli [E. coli] as the cause of diseases classified elsewhere; D72.828 Other elevated white blood cell count; Z98.890 Other specified postprocedural states; Z86.718 Personal history of other venous thrombosis and embolism; Z95.1 Presence of aortocoronary bypass graft; Z86.73 Personal history of transient ischemic attack (TIA), and cerebral infarction without residual deficits; I25.2 Old myocardial infarction; Z91.018 Allergy to other foods; Z79.02 Long term (current) use of antithrombotics/antiplatelets; Z79.899 Other long term (current) drug therapy
CPT/HCPCS: 36415; 71045; 74176; 80048; 80053; 81001; 83605; 83735; 84443; 84484; 85025; 85027; 85610; 85651; 87040; 87077; 87086; 87186; 93005; 93010; 96365; 96366; 96375; 99285-25; A9270; J0696; J2405; J2543; J7030; U0004

== ENCOUNTER 2022-07-21 11:23 | Inpatient (IN) | payer OTHER ==
[~2022-07-21] VITALS: Ht 172.7 cm; Wt 70.7 kg
[2022-07-21] VITALS (12 sets, daily range): BP systolic 62–100; BP diastolic 39–71
[~2022-07-21 11:23] MED LIST changes: +ALBU90OI INH; +Colace250 MG PO; +FAMO20 PO; +HYOS0.375T PO; +LEVFLO500 PO; +LISINOPRIL2.5 MG PO; +METO25ER PO; +MIRALAX17 GM PO; +NARCAN4 M1; +Norco 10-325 T1 EACH PO; +ONDA4 PO; +SENN187 PO; +SERT100 PO; +WARF5 PO
[2022-07-21 12:21] LABS: BASOPHILS ABSOLUTE AUTO 0.11 K/mm3 (0.00-0.23); BASOPHILS PERCENT AUTO 1 % (0-2); EOSINOPHILS PERCENT AUTO 0 % (0-6); Hematocrit 45.3 % (37.0-53.0); Hemoglobin 15.2 g/dL (13.5-17.5); IMMATURE GRAN ABSOLUTE AUTO 0.13 K/mm3 (0.00-0.10); IMMATURE GRAN PERCENT AUTO 1 % (0-1); LYMPHOCYTES ABSOLUTE AUTO 1.18 K/mm3 (0.84-5.20); LYMPHOCYTES PERCENT AUTO 6 % (21-46); MONOCYTES ABSOLUTE AUTO 0.92 K/mm3 (0.16-1.47); MONOCYTES PERCENT AUTO 5 % (4-13); Mean Corpuscular HGB 29.6 pg (26.0-34.0); Mean Corpuscular HGB Conc 33.6 g/dL (31.5-36.5); Mean Corpuscular Volume 88 fL (80-100); NEUTROPHILS ABSOLUTE AUTO 16.89 K/mm3 (1.96-9.15); NEUTROPHILS PERCENT AUTO 88 % (41-73); Platelet Count 252 K/mm3 (150-400); RDW Coefficient Variation 12.5 % (11.7-14.2); Red Blood Cell Count 5.13 M/mm3 (4.30-5.90); White Blood Cell Count 19.23 K/mm3 (4.00-11.30)
[2022-07-21 12:52] LABS: Albumin, Blood 3.7 g/dL (3.4-5.0); Albumin/Globulin Ratio 0.8 (0.8-1.8); Bilirubin, Total 0.4 mg/dL (0.1-1.0); Calcium, Blood 10.1 mg/dL (8.5-10.1); Creatinine, Blood 11.1 mg/dL (0.60-1.20); Globulin, Blood 4.6 g/dL (2.2-4.0); Potassium, Blood 5.6 mmol/L (3.5-5.5); Total Protein, Blood 8.3 g/dL (6.4-8.2)
[2022-07-21 14:16] LABS: Base Excess Venous -18.9 mmol/L; Bicarbonate Venous 11.2 mmol/L (24.0-30.0); PCO2 Venous 40.9 mmHg (38-42); pH Blood Venous 7.06 (7.34-7.37)
[2022-07-21 14:48] LABS: International Normalized Ratio 1.11; Prothrombin Time Results 11.6 Sec (9.7-11.5)
[2022-07-21 16:36] LABS: Source, Urine Clean Catch
[2022-07-21 16:51] LABS: Appearance, Urine Cloudy (Clear); Bilirubin, Urine Neg (Neg); Blood, Urine 4+ (Neg); Color, Urine Yellow (P-Yellow); Glucose Qualitative, Urine Neg (Neg); Ketones, Urine 1+ (Neg); Leukocyte Esterase, Urine 1+ (Neg); Nitrite, Urine Neg (Neg); Protein, Urine 3+ (Neg); Specific Gravity, Urine 1.025 (1.003-1.022); Urobilinogen, Urine NORM (Normal)
[2022-07-21 17:12] LABS: Hyaline Casts TNTC /lpf (0-2)
[2022-07-21 17:13] LABS: Renal Epithelial Mod /hpf (0-Rare)
[2022-07-21 17:14] LABS: Bacteria Many /hpf; Squamous Epithelial Cells Few /hpf (Few); Transitional Epithelial Cells Mod /hpf (0-Rare)
[2022-07-21 17:16] LABS: Calcium Oxalate Crystals Rare /hpf
[2022-07-21 17:54] LABS: Base Excess Venous -11.9 mmol/L; Bicarbonate Venous 15.1 mmol/L (24.0-30.0); PCO2 Venous 35.9 mmHg (38-42); PO2 Venous 29.1 mmHg (38-42)
[2022-07-21 17:55] LABS: pH Blood Venous 7.24 (7.34-7.37)
[2022-07-21 18:28] LABS: Calcium, Blood 8.5 mg/dL (8.5-10.1); Creatinine, Blood 9.9 mg/dL (0.60-1.20); Potassium, Blood 5.9 mmol/L (3.5-5.5)
--- NOTE | 2022-07-21 19:01 | NUR ---
ADMISSION/ END OF SHIFT NOTE. PT ADMITTED FROM THE ED INTO PCU7. VITALS HAVE BEEN STABLE EXCEPT BP HAS BEEN VARYING. BPs ARE CURRENTLY CYCLING REGULARLY. LAST BP WAS 104/77. PT HAS BICARB GTT INFUSING. DINH IS IN PLACE. PT REPORTS THAT IT IS PAINFUL BUT WHEN RN QUESTIONS ABOUT PAIN PT REPORTS THAT IT IS FINE AND ITS DRAINING. RN HAS OFFERED TO CALL MD TO ASK ABOUT SPASM MEDS OR LIDOCAINE. HOME OSTOMY IS IN PLACE TO ABD. PULSES TO BLE FAINT. DOPPLER NEEDED FOR ASSESSMENT. COOL TO THE TOUCH. PT WAS ORIENTED TO ROOM AND CALL LIGHT SYSTEM. PT IS ABLE TO MAKE NEEDS KNOWN, CALL LIGHT IS WITHIN REACH.
[2022-07-21 19:35] LABS: Bun/Creatinine Ratio 15.9 (12.0-20.0)
[2022-07-21 20:07] LABS: Bicarbonate Venous 17.4 mmol/L (24.0-30.0); PCO2 Venous 37.6 mmHg (38-42)
--- NOTE | 2022-07-21 21:26 | NUR ---
CARE ASSUMPTION: ASSUMED CARE OF PT AT 1915. PT ALERT, ABLE TO TELL THIS RN NAME, , AND LOCATION, KEEPS EYES CLOSED. TREMORS NOTED. HR AND BP STABLE, SATS >95% ON ROOM AIR, AFEBRILE. LEAKAGE NOTED AROUND URINARY CATHETER, PT COMPLAINING OF PAIN, AND CONTINUES TO TUG AT LINES. CATHETER REMOVED DUE TO LEAKAGE. CALL PLACED TO MD FOR PAIN MEDICATION, SEE EMAR. PT INC OF BOWEL, ATTENDS CHANAGED, MUCUS/BLOOD TINGED STOOL NOTED. PT STATES THIS IS NEW FOR HIM. PT WITH OSTOMY WITH LIQUID BROWN OUTPUT. PT WITH POOR CIRCULATION, PEDAL PULSES NON-PALPABLE, RADIAL PULSES FAINT. CAREGIVERS AT BEDSIDE AND UPDATED ON PT CARE. BICARB DRIP GTT IN L AC. CALL LIGHT IN REACH, BED IN LOW, WILL CONTINUE TO MONITOR.
--- NOTE | 2022-07-21 23:35 | NUR ---
UPDATE: PT BP 63/52 (57). 1L NS INFUSING NOW.
[2022-07-22] VITALS (23 sets, daily range): BP systolic 58–181; BP diastolic 37–169
--- NOTE | 2022-07-22 00:53 | NUR ---
UPDATE: 2L OF NS INFUSING NOW.
[2022-07-22 01:20] LABS: Base Excess Venous -7.3 mmol/L; Bicarbonate Venous 18.4 mmol/L (24.0-30.0); PCO2 Venous 31.9 mmHg (38-42); pH Blood Venous 7.36 (7.34-7.37)
[2022-07-22 01:23] LABS: BASOPHILS ABSOLUTE AUTO 0.02 K/mm3 (0.00-0.23); BASOPHILS PERCENT AUTO 0 % (0-2); EOSINOPHILS PERCENT AUTO 0 % (0-6); Hematocrit 30.7 % (37.0-53.0); Hemoglobin 10.8 g/dL (13.5-17.5); IMMATURE GRAN ABSOLUTE AUTO 0.02 K/mm3 (0.00-0.10); IMMATURE GRAN PERCENT AUTO 0 % (0-1); LYMPHOCYTES ABSOLUTE AUTO 0.51 K/mm3 (0.84-5.20); LYMPHOCYTES PERCENT AUTO 7 % (21-46); MONOCYTES ABSOLUTE AUTO 0.36 K/mm3 (0.16-1.47); MONOCYTES PERCENT AUTO 5 % (4-13); Mean Corpuscular HGB Conc 35.2 g/dL (31.5-36.5); Mean Corpuscular Volume 85 fL (80-100); Mean Platelet Volume 9.9 fL (9.1-12.4); NEUTROPHILS PERCENT AUTO 87 % (41-73); Platelet Count 138 K/mm3 (150-400); RDW Coefficient Variation 12.5 % (11.7-14.2); RDW Standard Deviation 38.7 fL (35.1-46.3); White Blood Cell Count 6.91 K/mm3 (4.00-11.30)
[2022-07-22 01:41] LABS: International Normalized Ratio 1.19; Prothrombin Time Results 12.4 Sec (9.7-11.5)
[2022-07-22 02:00] LABS: Albumin, Blood 2.4 g/dL (3.4-5.0); Albumin/Globulin Ratio 0.8 (0.8-1.8); Bilirubin, Total 0.2 mg/dL (0.1-1.0); Bun/Creatinine Ratio 18.4 (12.0-20.0); Calcium, Blood 7.5 mg/dL (8.5-10.1); Creatinine, Blood 8.16 mg/dL (0.60-1.20); Globulin, Blood 2.9 g/dL (2.2-4.0); Phosphorus, Blood 7.9 mg/dL (2.5-4.9); Potassium, Blood 4.9 mmol/L (3.5-5.5)
[2022-07-22 02:05] LABS: Total Protein, Blood 5.3 g/dL (6.4-8.2)
--- NOTE | 2022-07-22 03:16 | NUR ---
TRANSFER: PT TRANSFERRED TO ICU 10. REPORT GIVEN TO CHARY Velasquez RN. ALL BELONGINGS WITH PT. FAMILY NOTIFIED.
--- NOTE | 2022-07-22 04:03 | NUR ---
ASSUMED CARE PT ARRIVED ON UNIT AT 0243 ALERT TO YEAR/BIRTHDATE; [place] THOU[place]HT [place] AND AT REST WILL MUMBLE INCOHERENTLY. SPO2 >92% ON RA; MAP DIFFICULT TO ASSESS D/T CONSTANT JERKING MOVEMENTS OF PT'S BILATERAL EXTREMITIES. WAS ABLE TO GET 75-80/DOPPLER BP READINGS. LEVOPHED GTT @ 10MCG/MIN. UPDATE PT IS MORE ALERT AND WAS ABLE TO TELL THIS RN THAT HE WAS IN [place] AND AT THE HOSPITAL, EYES ARE OPEN AND PT IS MUCH MORE COHERENT/RESPONSIVE.
--- NOTE | 2022-07-22 06:22 | NUR ---
UPDATE DR TRUJILLO IN AT BEDSIDE D/T DIFFICULTY GETTING ACCURATE PRESSURES AND HYPOTENSIVE W/ MANUAL/DOPPLER BLOOD PRESSURES. ARTERIAL LINE/TRIALYSIS LINE INSERTED W/ MAP IN THE 50'S. LEVOPHED RUNNING AT 16MCG/MIN; VASOPRESSIN 0.04 UNITS/MIN. 2MG OF VERSED, 50MCG OF FENTANYL, AND 5MG OF HALDOL GIVEN D/T PT'S JERKING MOTION. PT IS CURRENTLY ON CPAP W/ 5/40%. ONE BOLUS OF LR RUNNING W/ ONE MORE TO BE GIVEN. WHEN CPAP WAS INITIALLY PUT ON PT'S PRESSURES DROPPED W/ MAP IN THE 40'S. DR TRUJILLO DECREASED CPAP PRESSURE W/ IMMEDIATE RESULTS AND MAP STABILIZING >65.
--- NOTE | 2022-07-22 07:21 | NUR ---
Assumed care of pt at 0700. Report received from Philippe MORENO. Pt is responsive to verbal stimulus. On CPAP 5 with 40% FiO2 through V60. RR 18. Levophed 16 mcg/min. Vasopressin 0.04 units/min. Measuring BP through arterial line in R axilla.
[2022-07-22 08:15] LABS: Source, Urine Foley catheter
[2022-07-22 08:22] LABS: Appearance, Urine Clear (Clear); Bilirubin, Urine Neg (Neg); Blood, Urine 3+ (Neg); Color, Urine Yellow (P-Yellow); Glucose Qualitative, Urine Neg (Neg); Ketones, Urine 1+ (Neg); Leukocyte Esterase, Urine Neg (Neg); Nitrite, Urine Neg (Neg); Protein, Urine 1+ (Neg); Specific Gravity, Urine 1.015 (1.003-1.022); Urobilinogen, Urine NORM (Normal)
[2022-07-22 08:30] LABS: White Blood Cells, Urine 0-2 /hpf (0-5)
[2022-07-22 08:31] LABS: Bacteria Rare /hpf; Mucus Light (0-Heavy); Squamous Epithelial Cells Few /hpf (Few)
--- NOTE | 2022-07-22 09:54 | NUR ---
Dr Luna assessed patient remotely. Plan of care discussed. Provider ordered for LR rate to increase to 150 mL/hr.
[2022-07-22 15:51] LABS: Anti-Xa UFH, PHA Monitoring <0.10 IU/mL
[2022-07-22 16:37] LABS: Bun/Creatinine Ratio 24.6 (12.0-20.0); Calcium, Blood 7.9 mg/dL (8.5-10.1); Creatinine, Blood 4.68 mg/dL (0.60-1.20); Magnesium, Blood 1.8 mg/dL (1.6-2.4); Phosphorus, Blood 5.3 mg/dL (2.5-4.9); Potassium, Blood 4.4 mmol/L (3.5-5.5)
--- NOTE | 2022-07-22 19:26 | NUR ---
SUMMARY Neuro: Has been lethargic for majority of day. Around 1500, there were visitors at bedside, pt was A&O x 3. Answering questions, following commands, verbalizes needs. Pleasant and cooperative with care. Pt and caregivers verbalized concern that he was not getting fentanyl patch. Pt stating he was hurting all over. Gave IV push fentanyl and one norco pill - which pt takes at home. He has been sleeping since. Resp: CPAP 10 and 40% FiO2 while sleeping due to snoring respirations and audible obstruction. RA while awake. Cardiac: SB to SR per monitor. HR currently 53. At 8 mcg/min levophed and 0.04 units/min vasopressin for majority of day. Able to decrease levophed to 4 mcg/min once IV calcium was infusing. GI: Colostomy emptied twice - liquid green output. : Good urine output from evans catheter. Skin: Unchanged from initial assessment. Psychosocial: Updated caregivers while they were visiting at bedside.
--- NOTE | 2022-07-22 21:45 | NUR ---
ASSUMPTION OF CARE/ASSESSMENT: ASSUMED CARE OF PT AT 1900; REPORT RECIEVED FROM LEESA Mcnally RN. PT IS CURRENTLY IN A DEEP SLEEP WITH CPAP IN PLACE, SETTINGS 10 AND FIO2 40%. PT AWAKENS TO VERBAL STIMULI AT THIS TIME AND ANSWERS QUESTIONS/FOLLOWS COMMANDS; PT A&O X 2-3. CURRENTLY PT SB TO SR ON MONITOR WITH HR 50-60'S; ART LINE IN R. FEMORAL WITH SBP READING 110-120'S. LEVO GTT @ 4 MCG AND VASO GTT ON SB AT THIS TIME. PT HAS CLEAR LUNG SOUNDS WITH RR 18-20 AND SPO2 96<. PT HAS HYPOACTIVE BS IN ALL QUADRANTS; ABD MODERATELY DISTENDED AND NON-TENDER. OSTOMY IN RLQ WITH BROWN, LIQUID OUTPUT. DINH IN PLACE AND DRAINING TO GRAVITY WITH YELLOW OUTPUT. PT HAS PPP X 4, SKIN WARM WITH COOL FEET BILATERALLY. TRIALYSIS CATHETER TO RIJ. BED LOWERED, CALL LIGHT IN REACH, WILL CONTINUE TO MONITOR.
[2022-07-23 02:12] LABS: BASOPHILS ABSOLUTE AUTO 0.02 K/mm3 (0.00-0.23); BASOPHILS PERCENT AUTO 0 % (0-2); EOSINOPHILS PERCENT AUTO 0 % (0-6); Hematocrit 26.4 % (37.0-53.0); Hemoglobin 9.5 g/dL (13.5-17.5); IMMATURE GRAN ABSOLUTE AUTO 0.06 K/mm3 (0.00-0.10); IMMATURE GRAN PERCENT AUTO 1 % (0-1); LYMPHOCYTES ABSOLUTE AUTO 1.15 K/mm3 (0.84-5.20); LYMPHOCYTES PERCENT AUTO 13 % (21-46); MONOCYTES ABSOLUTE AUTO 0.57 K/mm3 (0.16-1.47); MONOCYTES PERCENT AUTO 7 % (4-13); Mean Corpuscular HGB 30.4 pg (26.0-34.0); Mean Corpuscular Volume 84 fL (80-100); Mean Platelet Volume 10.1 fL (9.1-12.4); NEUTROPHILS ABSOLUTE AUTO 6.77 K/mm3 (1.96-9.15); NEUTROPHILS PERCENT AUTO 79 % (41-73); Platelet Count 143 K/mm3 (150-400); RDW Coefficient Variation 13.1 % (11.7-14.2); RDW Standard Deviation 40.2 fL (35.1-46.3); Red Blood Cell Count 3.13 M/mm3 (4.30-5.90); White Blood Cell Count 8.57 K/mm3 (4.00-11.30)
[2022-07-23 02:30] LABS: Albumin, Blood 2.3 g/dL (3.4-5.0); Albumin/Globulin Ratio 0.8 (0.8-1.8); Bilirubin, Total 0.3 mg/dL (0.1-1.0); Bun/Creatinine Ratio 31.4 (12.0-20.0); Calcium, Blood 9.5 mg/dL (8.5-10.1); Creatinine, Blood 3.28 mg/dL (0.60-1.20); Magnesium, Blood 2.4 mg/dL (1.6-2.4); Potassium, Blood 4.3 mmol/L (3.5-5.5); Total Protein, Blood 5.3 g/dL (6.4-8.2)
--- NOTE | 2022-07-23 05:54 | NUR ---
SHIFT SUMMARY: NO ACUTE CHANGES THIS SHIFT. PT SLEPT FOR MAJORITY OF NIGHT. AT MIDNIGHT REASSESSMENT, PT STATED REPEATEDLY THAT HE IS "READY TO AND CANNOT KEEP DOING THIS. MY BODY IS DONE." PT A&O X 4 DURING THIS CONVERSATION. DISCUSSED WITH PT REGARDING HOSPICE AND OUR PALLIATIVE CARE TEAM. PT REQUESTED A MEETING WITH A PALLIATIVE NURSE TO FURTHER DISCUSS THE HOSPICE/COMFORT CARE ROUTE; WILL PASS ALONG TO THE ONCOMING RN. PT HAD 400 OUTPUT FROM OSTOMY AND 1050 OUTPUT FROM DINH. PT REQUESTED GOWN TO BE TAKEN OFF THIS MORNING. PT HAD A SMALL BM AND JOSHI PAD AND DRY FLOW REPLACED. PT OFF CPAP SINCE AROUND MIDNIGHT AND HAS BEEN TOLERATING RA WITH SPO2 94<. BED LOWERED, CALL LIGHT IN REACH, WILL CONTINUE TO MONITOR UNTIL ONCOMING RN ARRIVES.
--- NOTE | 2022-07-23 09:58 | NUR ---
ASSUMED CARE REPORT FROM NALINI MORENO AT 0700. PT RESTING IN BED, APPEARED TO BE SLEEPING MOST OF AM, WAKES c VERBAL STIMULI. FOLLOWS DIRECTIONS. A&O X 3. IRRITABLE. STATES HE WANTS TO GO ON HOSPICE D/T PAIN. MEDICATED c FENTANYL. PALLIATIVE CARE NOTIFIED. LUNGS CLEAR. SR, RATE 60-80'S. MAP>60 WHEN PT LAYING SUPINE. ART LINE TO RIGHT AXILLA, FLUSHED AND ZERO'D. DRESSING C/D/I. TRIALYSIS CATH TO RIGHT IJ, DRESSING TO BE CHANGED. ABD DISTENDED, SOFT, TENDER. BT X 4. OSTOMY TO RLQ. STOMA PINK, BROWN LIQUID OUT. DINH PATENT, DRAINING YAMILEX URINE TO GRAVITY. WILL CONTINUE TO MONITOR.
--- NOTE | 2022-07-23 13:53 | NUR ---
RECEIVED CALL FROM PATRICIA MORENO, PT REQUESTING TO TALK TO PALLIATIVE CARE ABOUT HOSPICE. MET WITH PT, HE IS LAYING SUPINE IN BED, JUST RECEIVED PAIN MEDICATION AND APPEARS TO BE RESTING COMF. PT AWAKENS EASILY WHEN I CALL HIS NAME AND, HE IS ALSLIGHTLY AGITATION WITH MY QUESTIONS, BUT COOPERATIVE AND AGREEABLE TO MY VISIT. PT REPORTS THAT HE HAS PAIN ALL THE TIME, HIS BODY HURTS ALL OVER AND EVERYTIME HE TRIES TO EAT OR DRINK ANYTHING, "IT TEARS MY STOMACH UP." PT REPORTS THAT IS WHY HE BECAME SO DEHYDRATED, HE WAS AFRAID TO TAKE ANYTHING BY MOUTH. HE STATES, "I KNOW IM DYING AND I JUST WANT TO GO ON HOSPICE AND BE DONE WITH IT." PT REPORTS THAT HE HAS NOT BEEN TOLD THIS BY HIS DOCTORS, BECOMES AGITATED WHEN I ASK ABOUT THIS AND STATES, "I KNOW MY BODY AND MY BODY IS TELLING ME IT DYING. STACEY BEEN DEALING WITH THIS FOR TOOO LONG." PT THEN GOES ON AND STATES, "I JUST LOST MY CLOSEST FRIEND ON HOSPICE, IM ALL ALONE. I HAVE NO FIRENDS AND NO FAMILY. ALL I HAVE IS KATHARINA, HE TAKES CARE OF ME. IM ALL ALONE. 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 FAX SENT TO [facility] IN REQUEST FOR MOST RECENT H&P AND MED LIST. IN REVIEW OF PT CHART, HE WAS SEEN IN 2020 FOR SIMILAR REASONS AND ADMITTED. REVIEW OF PT CHART, PT ARF HAS BEEN IMPROVING, UNCLEAR IF PT HAS A TERMINAL DIAGNOSIS TO MEET CRITERIA FOR HOSPICE CARE. PT PLOF, LIVES AT HOME WITH CAREGIVERS X2 AND USES A SCOOTER TO MOVE AROUND THE HOUSE. PALLIATIVE CARE WILL CONT TO FOLLOW FOR SYMPTOM MANAGEMENT, ASSESS IF PT IS APPROP FOR HOSPICE, AND COLLABORATE WITH CARE TEAM. AWAITING RECORDS FROM THE MD.
--- NOTE | 2022-07-23 14:30 | NUR ---
Assumed care of pt at 0700. Report received from Rosalia MORENO. Pt is A&O x 4. Answers questions, follows commands, verbalizes needs. Pleasant and cooperative with care. SpO2 90% or greater with room air. SR per monitor. BP stable. Pressors off. Pt reviews his extensive health history with this RN and discusses how he is not able to do the activities that he enjoys anymore. He details that he has over 30 vehicles for yazdanism. 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 Pt states that he is ready to be made comfortable and peacefully pass away instead of focusing on curative efforts. Noted that pt discussed goals of care with palliative care today.
--- NOTE | 2022-07-23 18:20 | NUR ---
Plan of care discussed with Dr Jose. Notified provider that pt remains off vasopressors. Discussed that palliative care is currently evaluating his eligibility for hospice. Inquired if central line and arterial line are still needed for this patient. Per provider, these lines can be discontinued tonight.
--- NOTE | 2022-07-23 18:27 | NUR ---
SUMMARY Neuro: A&O x 4. Answers questions, follows commands, verbalizes needs. Pleasant and cooperative with care. Musc: Able to help with ADLs. Pt is particularly skilled with his ostomy care. Resp: SpO2 90% or greater RA. Cardiac: SR per monitor. BP stable. Pressors off since this AM. Per Dr Jose, arterial line and central line may be discontinued. GI: Drinking coffee. Patient was offered dinner tray but is disinterested in eating. : Excellent urine output through evans Skin: Unremarkable from initial assesment. Psych: Flat affect, cantakerous at times but overall pleasant and cooperative.
[2022-07-23 19:15] VITALS: BP 115/52
--- NOTE | 2022-07-23 19:15 | NUR ---
ASSUMED CARE OF PT @1900 FROM LEESA MORENO. BEDSIDE REPORT. PT IS A&O X4. PLEASANT BUT EXPRESSES DISCOMFORT AND SEVERE PAIN THROUGHOUT BODY AND EXSPECIALLY RIGHT LEG. CONTINUOUS CARDIAC MONITORING. HR 60'S, SBP STABLE, MAP >65. RR <20, SPO2 98% ON RA. ARTERIAL LINE IN R AXILLA. TRIALYSIS CATH RIJ PATENT. IV 20GA CARLOS A PATENT W/SALINE LOCK. DINH CATH IN PLACE AND DRAINING TO GRAVITY.
--- NOTE | 2022-07-23 20:30 | NUR ---
UPDATE: PER DR. DAI, START ON 04/26 NS @100MLS/HR MAINT.
[2022-07-24] VITALS (11 sets, daily range): BP systolic 96–117; BP diastolic 44–104
[2022-07-24 03:32] LABS: BASOPHILS ABSOLUTE AUTO 0.02 K/mm3 (0.00-0.23); BASOPHILS PERCENT AUTO 0 % (0-2); EOSINOPHILS ABSOLUTE AUTO 0.03 K/mm3 (0.00-0.68); EOSINOPHILS PERCENT AUTO 0 % (0-6); Hematocrit 25.8 % (37.0-53.0); Hemoglobin 8.8 g/dL (13.5-17.5); IMMATURE GRAN ABSOLUTE AUTO 0.11 K/mm3 (0.00-0.10); IMMATURE GRAN PERCENT AUTO 1 % (0-1); LYMPHOCYTES PERCENT AUTO 10 % (21-46); MONOCYTES ABSOLUTE AUTO 0.48 K/mm3 (0.16-1.47); MONOCYTES PERCENT AUTO 6 % (4-13); Mean Corpuscular HGB 30.1 pg (26.0-34.0); Mean Corpuscular HGB Conc 34.1 g/dL (31.5-36.5); Mean Corpuscular Volume 88 fL (80-100); Mean Platelet Volume 9.8 fL (9.1-12.4); NEUTROPHILS ABSOLUTE AUTO 6.87 K/mm3 (1.96-9.15); NEUTROPHILS PERCENT AUTO 83 % (41-73); Platelet Count 148 K/mm3 (150-400); RDW Standard Deviation 42.7 fL (35.1-46.3); Red Blood Cell Count 2.92 M/mm3 (4.30-5.90); White Blood Cell Count 8.31 K/mm3 (4.00-11.30)
[2022-07-24 03:46] LABS: Anion Gap 5 mmol/L (6-16); Blood Urea Nitrogen 72 mg/dL (8-24); Bun/Creatinine Ratio 44.7 (12.0-20.0); CO2, Blood 31 mmol/L (21-32); Calcium, Blood 8.8 mg/dL (8.5-10.1); Chloride, Blood 105 mmol/L (98-108); Creatinine, Blood 1.61 mg/dL (0.60-1.20); Glomerular Filtration Rate 44 (60-); Glucose, Blood 113 mg/dL (70-99); Phosphorus, Blood 3.8 mg/dL (2.5-4.9); Potassium, Blood 3.2 mmol/L (3.5-5.5); Sodium, Blood 141 mmol/L (136-145)
[2022-07-24 06:11] LABS: COMPLEMENT C3, SERUM 131 mg/dL (82-167); COMPLEMENT C4, SERUM 25 mg/dL (12-38)
--- NOTE | 2022-07-24 06:25 | NUR ---
SUMMARY NEURO/PSYCH/MOBILITY: PT IS A&O X4. PLEASANT AND COOPERATIVE W/CARE. STATED MULTIPLE TIMES HE WAS "READY TO PASS ON" AND THAT "HIS BODY WAS SAYING IT IS TIME." PT STATED HE "JUST WANTED TO BE MADE COMFORTABLE AND REST." PT COMPLAINED OF SEVERE PAIN THROUGHOUT SHIFT, MEDICATED PER EMAR. PT ABLE TO MAKE SIGNIFICANT CHANGES TO BODY POSITION INDEPENDENTLY. AFEBRILE. PERRL. RESP: PT REFUSED TO WEAR CPAP. DESATED INTO THE 80'S WHILE SLEEPING. AGREED TO TRY NC DURING THE NIGHT. 2L O2 VIA NC. RR <20, SPO2 >94%. PT REMOVED NC THIS AM. SPO2 >90%. CARDIAC: CONTINUOUS CARDIAC MONITORING. HR 60-70'S W/MULITFORM PVC'S. ARTERIAL BP MONITORING, SBP STABLE. MAP >65. DOPPLER PULSES BLE. GI: PT STATES "FOOD TEARS HIS STOMACH UP" DID NOT EAT DT FEAR OF PAIN. PT IS ABLE TO EMPTY OWN COLOSTOMY W/MINIMAL ASSISTANCE. LIQUID GREEN/BROWN OUTPUT EMPTIED TWICE. DENIES NAUSEA. ABLE TO TAKE ORAL MEDICATION W/OUT COMPLICATION. : 900MLS LIGHT YELLOW URINE OUTPUT THIS SHIFT. DINH CONTINUED NEED DT CRITICAL CARE I/O. SKIN: ASSESSMENT REMAINS UNCHANGED. IV ACCESS: TRIALYSIS CATH RIJ INFUSING 1/2 NS @100MLSS/HR. ARTERIAL LINE R AXILLARY. 20GA LAC SALINE LOCK.
--- NOTE | 2022-07-24 08:58 | NUR ---
Assumed care of pt at 0700. Report received from Maria Fernanda MORENO. Pt A&O x 4. Answers questions, follows commands, verbalizes needs. Pleasant and cooperative with care. SpO2 90% or greater RA. Arterial line in R axilla removed by this RN and dressed with tegaderm CHG. Pt tolerated well. No hematoma or drainage from site. Color, sensation, pulses, capillary refill equal BUE.
--- NOTE | 2022-07-24 11:39 | NUR ---
Central line/dialysis catheter removed. Dressed with petroleum gauze, 4x4s and tegaderm. Small gumball sized hematoma palpated beaneath dressing. Dr Jose notified. no drainage noted on dressing. Okay to remove Gregg per Dr Luna. Rgegg removed, pt tolerated well.
--- NOTE | 2022-07-24 14:36 | NUR ---
CASE CONF WITH LEESA MORENO, SHE REPORTS PT IS FEELING BETTER TODAY AND WAS ABLE TO EAT SOMETHING WITHOUT EXPERIENCING PAIN. PT IS ON A 25MCG/HR FENTANYL PATCH AT HOME, RESTARTED FENTANYL 50MCG/HR PATCH YESTERDAY. PT REPORTS HIS PAIN IS BETTER MANAGED AND VERBALIZES THAT HE HAS DECIDED NOT TO PERSUE HOSPICE AT THIS TIME. PALLIATIVE CARE WILL CONT TO FOLLOW AD OFFER SUPPORT.
--- NOTE | 2022-07-24 18:23 | NUR ---
PT TRANSFERRED TO MEDICAL FLOOR AT 1815 AFTER RECEIVING REPORT FROM ICU NURSE. PT IN STABLE CONDITION.
--- NOTE | 2022-07-24 18:39 | NUR ---
SUMMARY Pt departed ICU at 1755. Medical floor status without telemetry ordered. At time of transfer pt A&O x 4. Answers questions, follows commands, verbalizes needs. Pleasant and cooperative with care. SpO2 90% or greater RA. SR per monitor with PVCs, prior to discontinuation. Repositions independently. Ostomy appliance changed today, using pt's home supplies. Chart, medications, belongings transferred with pt. Pt refused bathing today.
[2022-07-25 04:34] VITALS: BP 111/51
--- NOTE | 2022-07-25 04:34 | NUR ---
SHIFT SUMMARY; NO ACUTE CHANGES OVERNIGHT. THE PT IS AXO X4 AND ON BEDREST. THE PT HAS A ILEOSTOMY, IT IS PATENT AND DRAINING WELL. THE PT REPORTS SOME GENERALIZED PAIN FOR WHICH HE IS MEDICATED FOR PER THE EMAR. THE PT DENIES ANY SOB, CHEST PAIN/PRESSURE OR N/V. CURRENTLY THE PT IS SLEEPING IN BED WITH THE BED IN THE LOWEST POSITION AND THE CALL LIGHT IS AT BEDSIDE.
[2022-07-25 06:16] LABS: Albumin, Blood 2.2 g/dL (3.4-5.0); Anion Gap 4 mmol/L (6-16); Blood Urea Nitrogen 36 mg/dL (8-24); CO2, Blood 31 mmol/L (21-32); Calcium, Blood 8.6 mg/dL (8.5-10.1); Chloride, Blood 108 mmol/L (98-108); Creatinine, Blood 1.16 mg/dL (0.60-1.20); Ferritin, Serum 265 ng/mL (26-388); Glomerular Filtration Rate 65 (60-); Glucose, Blood 112 mg/dL (70-99); Iron Serum 17 ug/dL (65-175); Percent Saturation 11.6 % (20.0-50.0); Phosphorus, Blood 3.3 mg/dL (2.5-4.9); Potassium, Blood 3.7 mmol/L (3.5-5.5); Sodium, Blood 143 mmol/L (136-145); Total Iron Binding Capacity 147 ug/dL (250-450)
[2022-07-25 07:35] VITALS: BP 109/59
--- NOTE | 2022-07-25 17:24 | NUR ---
DISCHARGE SUMMARY PATIENT IS ALERT AND ORIENTED. VITAL SIGNS REVIEWED. PATIENT HAS HAD NO ACUTE EVENTS THIS SHIFT. PATIENT HAS NOT COMPLAINED OF NAUSEA, SOB OR VOMITTING THIS SHIFT. PATIENT HAS REPORTED PAIN OCCASIONALLY THAT GOES AWAY, MEDICATED ONCE FOR PAIN. PATIENT IS BEING DISCHARGED HOME WITH CAREGIVER TRANSPORTING PATIENT.
[2022-07-28 12:11] LABS: M-SPIKE, % Not Observed % (Not Observed); PROTEIN,TOTAL,URINE 30.9 mg/dL (Not Estab.)
[2022-07-28 15:11] LABS: ALBUMIN 2.3 g/dL (2.9-4.4); ALPHA-1-GLOBULIN 0.3 g/dL (0.0-0.4); ALPHA-2-GLOBULIN 0.8 g/dL (0.4-1.0); BETA GLOBULIN 0.7 g/dL (0.7-1.3); GAMMA GLOBULIN 0.6 g/dL (0.4-1.8); GLOBULIN, TOTAL 2.4 g/dL (2.2-3.9); M-SPIKE 0.1 g/dL (Not Observed); PROTEIN, TOTAL, SERUM 4.7 g/dL (6.0-8.5)
== END 2022-07-25 17:17 | disposition home health service (06) | DRG 682 ==
LOC: ER 11:23 → PCU 15:42 → MEDS 15:42 → ICUW 15:42 → PCU 17:30 → ICUW 07-22 02:42 → MEDS 07-24 18:04
PROVIDERS: Internal Medicine; Internal Medicine Critical Care Medicine; Internal Medicine Nephrology; Nurse Practitioner Acute Care; Student in an Organized Health Care Education/Training Program; ADMIT Internal Medicine
PROC: 0T9B70Z Drainage of Bladder with Drainage Device, Via Natural or Artificial Opening (ICD-10-PCS; 2022-07-21)
PROC: 3E033XZ Introduction of Vasopressor into Peripheral Vein, Percutaneous Approach (ICD-10-PCS; principal; 2022-07-22)
PROC: 4A133B1 Monitoring of Arterial Pressure, Peripheral, Percutaneous Approach (ICD-10-PCS; 2022-07-22)
PROC: 4A133J1 Monitoring of Arterial Pulse, Peripheral, Percutaneous Approach (ICD-10-PCS; 2022-07-22)
PROC: 02HV33Z Insertion of Infusion Device into Superior Vena Cava, Percutaneous Approach (ICD-10-PCS; 2022-07-22)
PROC: B548ZZA Ultrasonography of Superior Vena Cava, Guidance (ICD-10-PCS; 2022-07-22)
PROC: 5A09357 Assistance with Respiratory Ventilation, Less than 24 Consecutive Hours, Continuous Positive Airway Pressure (ICD-10-PCS; 2022-07-22)
DX: N17.0 Acute kidney failure with tubular necrosis (principal); G92.8 Other toxic encephalopathy; R57.1 Hypovolemic shock; R65.10 Systemic inflammatory response syndrome (SIRS) of non-infectious origin without acute organ dysfunction; F11.20 Opioid dependence, uncomplicated; Z66 Do not resuscitate; N18.30 Chronic kidney disease, stage 3 unspecified; E86.0 Dehydration; E87.6 Hypokalemia; E87.5 Hyperkalemia; E83.51 Hypocalcemia; D63.1 Anemia in chronic kidney disease; I25.10 Atherosclerotic heart disease of native coronary artery without angina pectoris; G89.4 Chronic pain syndrome; E78.5 Hyperlipidemia, unspecified; I73.9 Peripheral vascular disease, unspecified; J45.909 Unspecified asthma, uncomplicated; K21.9 Gastro-esophageal reflux disease without esophagitis; I95.9 Hypotension, unspecified; F41.8 Other specified anxiety disorders; I12.9 Hypertensive chronic kidney disease with stage 1 through stage 4 chronic kidney disease, or unspecified chronic kidney disease; Z99.3 Dependence on wheelchair; Z79.899 Other long term (current) drug therapy; Z86.73 Personal history of transient ischemic attack (TIA), and cerebral infarction without residual deficits; I25.2 Old myocardial infarction; Z95.5 Presence of coronary angioplasty implant and graft; Z98.890 Other specified postprocedural states; Z87.891 Personal history of nicotine dependence; Z91.018 Allergy to other foods; Z79.01 Long term (current) use of anticoagulants
CPT/HCPCS: 36415; 36556; 36620; 51702; 71045; 76770; 80048; 80053; 80069; 81001; 82010; 82330; 82533; 82550; 82570; 82728; 82803; 83540; 83550; 83605; 83615; 83690; 83735; 84100; 84156; 84165; 84166; 84484; 85025; 85520; 85610; 85730; 86160; 87040; 87086; 93005; 93010; 93925; 94660; 96361-59; 96365-59; 96375-59; 96376-59; 97110-CQ; 97161; 99285-25; A9270; C1751; C1752; C8929; J0696; J1170; J1630; J1644; J1650; J2250; J2270; J2765; J3010; J3370; J3475; J7030; J7060; J7120; Q9957

== ENCOUNTER 2023-02-24 23:32 | Emergency (ER) | payer OTHER ==
[~2023-02-24] VITALS: Ht 180.3 cm; Wt 69.0 kg
[2023-02-25 02:21] LABS: BASOPHILS ABSOLUTE AUTO 0.07 K/mm3 (0.00-0.23); BASOPHILS PERCENT AUTO 1 % (0-2); EOSINOPHILS ABSOLUTE AUTO 0.13 K/mm3 (0.00-0.68); EOSINOPHILS PERCENT AUTO 1 % (0-6); Hematocrit 44.3 % (37.0-53.0); Hemoglobin 14.9 g/dL (13.5-17.5); IMMATURE GRAN ABSOLUTE AUTO 0.04 K/mm3 (0.00-0.10); IMMATURE GRAN PERCENT AUTO 0 % (0-1); LYMPHOCYTES ABSOLUTE AUTO 2.29 K/mm3 (0.84-5.20); LYMPHOCYTES PERCENT AUTO 22 % (21-46); MONOCYTES ABSOLUTE AUTO 0.55 K/mm3 (0.16-1.47); MONOCYTES PERCENT AUTO 5 % (4-13); Mean Corpuscular HGB 30.1 pg (26.0-34.0); Mean Corpuscular HGB Conc 33.6 g/dL (31.5-36.5); Mean Corpuscular Volume 90 fL (80-100); Mean Platelet Volume 9.7 fL (9.1-12.4); NEUTROPHILS ABSOLUTE AUTO 7.43 K/mm3 (1.96-9.15); NEUTROPHILS PERCENT AUTO 71 % (41-73); Platelet Count 132 K/mm3 (150-400); RDW Coefficient Variation 13.5 % (11.7-14.2); Red Blood Cell Count 4.95 M/mm3 (4.30-5.90); White Blood Cell Count 10.51 K/mm3 (4.00-11.30)
[2023-02-25 02:36] LABS: Bun/Creatinine Ratio 19.1 (12.0-20.0); Calcium, Blood 8.8 mg/dL (8.5-10.1); Creatinine, Blood 1.31 mg/dL (0.60-1.20); International Normalized Ratio 1.02; Potassium, Blood 4.2 mmol/L (3.5-5.5); Prothrombin Time Results 10.7 Sec (9.7-11.5)
[2023-02-25 04:14] LABS: Anti-Xa UFH, PHA Monitoring 0.32 IU/mL
[2023-02-25 06:00] VITALS: BP 103/70
== END 2023-02-25 06:00 | disposition short-term general hospital (02) ==
LOC: ER 23:32
PROVIDERS: Emergency Medicine
DX: T82.392A Other mechanical complication of femoral arterial graft (bypass), initial encounter (principal); I99.8 Other disorder of circulatory system; I25.2 Old myocardial infarction; I10 Essential (primary) hypertension; E78.5 Hyperlipidemia, unspecified; I25.10 Atherosclerotic heart disease of native coronary artery without angina pectoris; J45.909 Unspecified asthma, uncomplicated; K21.9 Gastro-esophageal reflux disease without esophagitis; F17.290 Nicotine dependence, other tobacco product, uncomplicated
CPT/HCPCS: 75635; 80048; 85025; 85520; 85610; 85730; 99285-25; J1644; J2405; J3010; Q9967

== ENCOUNTER 2023-05-03 18:09 | Inpatient (IN) | payer OTHER ==
[~2023-05-03] VITALS: Ht 177.8 cm; Wt 64.4 kg
[2023-05-03 18:25] LABS: Source, Urine Clean Catch
[2023-05-03 18:48] LABS: Appearance, Urine Hazy (Clear); Blood, Urine 1+ (Neg); Color, Urine Brown (P-Yellow); Glucose Qualitative, Urine Neg (Neg); Ketones, Urine Neg (Neg); Leukocyte Esterase, Urine 1+ (Neg); Nitrite, Urine Pos (Neg); Protein, Urine 3+ (Neg); Urobilinogen, Urine 2+ (Normal)
[2023-05-03 18:49] LABS: BASOPHILS ABSOLUTE AUTO 0.05 K/mm3 (0.00-0.23); BASOPHILS PERCENT AUTO 1 % (0-2); EOSINOPHILS ABSOLUTE AUTO 0.06 K/mm3 (0.00-0.68); EOSINOPHILS PERCENT AUTO 1 % (0-6); Hematocrit 40.2 % (37.0-53.0); Hemoglobin 13.5 g/dL (13.5-17.5); IMMATURE GRAN ABSOLUTE AUTO 0.04 K/mm3 (0.00-0.10); IMMATURE GRAN PERCENT AUTO 1 % (0-1); LYMPHOCYTES ABSOLUTE AUTO 1.38 K/mm3 (0.84-5.20); LYMPHOCYTES PERCENT AUTO 17 % (21-46); MONOCYTES ABSOLUTE AUTO 0.47 K/mm3 (0.16-1.47); MONOCYTES PERCENT AUTO 6 % (4-13); Mean Corpuscular HGB 29.4 pg (26.0-34.0); Mean Corpuscular HGB Conc 33.6 g/dL (31.5-36.5); Mean Corpuscular Volume 88 fL (80-100); NEUTROPHILS ABSOLUTE AUTO 5.95 K/mm3 (1.96-9.15); NEUTROPHILS PERCENT AUTO 75 % (41-73); Platelet Count 201 K/mm3 (150-400); RDW Standard Deviation 50.9 fL (35.1-46.3); Red Blood Cell Count 4.59 M/mm3 (4.30-5.90); White Blood Cell Count 7.95 K/mm3 (4.00-11.30)
[2023-05-03 18:50] LABS: Bilirubin, Urine 3+ (Neg)
[2023-05-03 18:53] LABS: Bacteria Mod /hpf; Squamous Epithelial Cells Rare /hpf (Few)
[2023-05-03 18:54] LABS: Renal Epithelial Rare /hpf (0-Rare)
[2023-05-03 19:10] LABS: Albumin, Blood 2.6 g/dL (3.4-5.0); Albumin/Globulin Ratio 0.6 (0.8-1.8); Bilirubin, Total 16.8 mg/dL (0.1-1.0); Bun/Creatinine Ratio 17.4 (12.0-20.0); Calcium, Blood 9.1 mg/dL (8.5-10.1); Creatinine, Blood 0.92 mg/dL (0.60-1.20); Globulin, Blood 4.3 g/dL (2.2-4.0); Potassium, Blood 3.1 mmol/L (3.5-5.5); Total Protein, Blood 6.9 g/dL (6.4-8.2)
--- NOTE | 2023-05-04 05:21 | NUR ---
SHIFT SUMMARY PT ER ADMIT THIS SHIFT FOR PANCREATIC MASS. PT REPORTS ABD PAIN, BUT DENIES N/V. ABD DISTENDED. RIGHT OSTOMY WITH BROWN LIQUID STOOL. PT IS VERY JAUNDICED. PT MEDICATED FOR PAIN PER EMAR. PT HAS RESTED IN BED T/O THE NIGHT. CALLS APPROPRIATELY, CALL LIGHT WITHIN REACH. PT HAD A CUP OF COFFEE IN HIS HAND WHEN HE ARRIVED ON GURNEY FROM ER AND WAS ACTIVELY DRINKING IT DESPITE NPO STATUS. PT REMINDED THAT HE WAS NPO AND AGREED FOR ME TO DISCARD THE COFFEE. NO ACUTE CHANGES OVERNIGHT. BED IN LOWEST POSITION, CALL LIGHT WITHIN REACH.
[2023-05-04 05:26] VITALS: BP 120/61
[2023-05-04 05:31] LABS: Prothrombin Time Results 56.6 Sec (9.7-11.5)
[2023-05-04 05:37] LABS: International Normalized Ratio 5.96
[2023-05-04 05:42] LABS: Albumin, Blood 2.5 g/dL (3.4-5.0); Albumin/Globulin Ratio 0.6 (0.8-1.8); Bilirubin, Total 17.6 mg/dL (0.1-1.0); Bun/Creatinine Ratio 18.8 (12.0-20.0); Calcium, Blood 9.4 mg/dL (8.5-10.1); Creatinine, Blood 0.85 mg/dL (0.60-1.20); Globulin, Blood 4.3 g/dL (2.2-4.0); Potassium, Blood 3.1 mmol/L (3.5-5.5); Total Protein, Blood 6.8 g/dL (6.4-8.2)
[2023-05-04 07:17] VITALS: BP 108/52
[2023-05-04] MEDS ORDERED: GABA100 PO (12:39)
[2023-05-04] MEDS ORDERED: XARELTO20 MG PO (13:42)
[2023-05-04] MEDS ORDERED: Lisinopril2.5 MG PO (13:44)
[2023-05-04] MEDS ORDERED: ASCO500 PO (13:45)
[2023-05-04] MEDS ORDERED: TUMS500 MG PO (13:46)
[2023-05-04] MEDS ORDERED: THERA-D2000 UNIT PO (13:47)
[2023-05-04] MEDS ORDERED: VITAMIN B-122000 MC1 PO (13:48)
[2023-05-04] MEDS ORDERED: LACT PO (13:49)
[2023-05-04 15:34] VITALS: BP 116/75
--- NOTE | 2023-05-04 19:06 | NUR ---
WAKES EASILY AND BACK TO SLEEP, MIGUELITO NEEDS KNOWN, INR 5.96, MRI ON HOLD DUE TO MACHINES BEING DOWN AND MRI NEEDS THE REPORT FOR THE TRIPLE BYPASS WITH STENT PLACEMENT. THE [facility] IN [facility] NOT HAVE ANY COMPUTER RECORDS BEFORE 1999, BECAUSE THIS WILL TAKE TIME TO GET, REPORTED TO DR LOWERY, AST AND ALT INCREASED, FULL LIQUID DIET, MEDICATED FOR PAIN X1, REMOVED FENTANYL PATCH, HOME MEDICATION LIST FROM VA RECEIVED, PATIENTS CAREGIVER LEFT BEFORE ABLE TO CLARIFY PLAVIX AND XERALTO, PROTONIX AND PEPCID. PLEASANT TO CARE, CALL LIGHT WITH IN REACH, WILL RELAY TO PM TIFFANIE
[2023-05-04 19:21] VITALS: BP 118/72
[2023-05-05 04:15] VITALS: BP 112/62
[2023-05-05 04:48] LABS: BASOPHILS ABSOLUTE AUTO 0.06 K/mm3 (0.00-0.23); BASOPHILS PERCENT AUTO 1 % (0-2); EOSINOPHILS ABSOLUTE AUTO 0.08 K/mm3 (0.00-0.68); EOSINOPHILS PERCENT AUTO 1 % (0-6); Hematocrit 41.9 % (37.0-53.0); IMMATURE GRAN ABSOLUTE AUTO 0.03 K/mm3 (0.00-0.10); IMMATURE GRAN PERCENT AUTO 1 % (0-1); LYMPHOCYTES ABSOLUTE AUTO 1.22 K/mm3 (0.84-5.20); LYMPHOCYTES PERCENT AUTO 20 % (21-46); MONOCYTES ABSOLUTE AUTO 0.47 K/mm3 (0.16-1.47); MONOCYTES PERCENT AUTO 8 % (4-13); Mean Corpuscular HGB 28.9 pg (26.0-34.0); Mean Corpuscular HGB Conc 33.4 g/dL (31.5-36.5); Mean Corpuscular Volume 86 fL (80-100); Mean Platelet Volume 10.5 fL (9.1-12.4); NEUTROPHILS ABSOLUTE AUTO 4.39 K/mm3 (1.96-9.15); NEUTROPHILS PERCENT AUTO 70 % (41-73); Platelet Count 208 K/mm3 (150-400); RDW Coefficient Variation 16.1 % (11.7-14.2); RDW Standard Deviation 50.6 fL (35.1-46.3); Red Blood Cell Count 4.85 M/mm3 (4.30-5.90); White Blood Cell Count 6.25 K/mm3 (4.00-11.30)
[2023-05-05 05:38] LABS: Albumin, Blood 2.8 g/dL (3.4-5.0); Albumin/Globulin Ratio 0.7 (0.8-1.8); Bilirubin, Total 20.7 mg/dL (0.1-1.0); Bun/Creatinine Ratio 19.1 (12.0-20.0); Creatinine, Blood 0.94 mg/dL (0.60-1.20); Globulin, Blood 4.3 g/dL (2.2-4.0); Potassium, Blood 4.3 mmol/L (3.5-5.5); Total Protein, Blood 7.1 g/dL (6.4-8.2)
[2023-05-05 07:27] VITALS: BP 116/58
[2023-05-05 08:49] LABS: Prothrombin Time Results 62.3 Sec (9.7-11.5)
[2023-05-05 08:58] LABS: International Normalized Ratio 6.6
[2023-05-05 15:03] VITALS: BP 111/65
--- NOTE | 2023-05-05 16:33 | NUR ---
MET WITH ANU AND CAREGIVER ALEXANDRA, CAREGIVER KATHARINA WAS ON THE PHONE. PATIENT IS LEAVING TOMORROW WITH HOSPICE AND WANTED TO KNOW WHAT WOULD OCCURE ONCE HE LEFT THE HOSPITAL. DISCUSSED WHAT HOSPICE PROVIDED FOR EQUIPMENT AND MEDICATIONS, AND DISCUSSED THAT THEY WOULD MEET WITH A CARBONATION TESTER THAT WOULD CREATE A PLAN AND ASSESS NEEDS WITH THEM. WE FILLED OUT A NEW POLST.
--- NOTE | 2023-05-05 17:01 | NUR ---
SHIFT SUMMARY PT A&OX4, VSS/RA, CANDY PO CARDIAC DIET, VOIDING/URINAL, ILEOSTOMY WITH LIQUID STOOL, STAND PIVOT TO WC/BED, PAIN MANAGED, PLAN FOR DC HOME ON HOSPICE. WILL REPORT TO ONCOMING NOC RN.
[2023-05-05 21:13] VITALS: BP 106/50
--- NOTE | 2023-05-05 21:40 | NUR ---
DR CONSULT PT COMPAINS OF 9/10 PAIN DESPITE CURRENT PAIN MEDICATIONS PER EMAR. CALLED PLACED DR, MADE AWARE OF PT CONDITION- ORDERED IV FENT PER EMAR.
[2023-05-06 04:49] LABS: BASOPHILS ABSOLUTE AUTO 0.04 K/mm3 (0.00-0.23); BASOPHILS PERCENT AUTO 1 % (0-2); EOSINOPHILS PERCENT AUTO 2 % (0-6); Hematocrit 37.9 % (37.0-53.0); Hemoglobin 12.8 g/dL (13.5-17.5); IMMATURE GRAN ABSOLUTE AUTO 0.03 K/mm3 (0.00-0.10); IMMATURE GRAN PERCENT AUTO 1 % (0-1); LYMPHOCYTES ABSOLUTE AUTO 1.02 K/mm3 (0.84-5.20); LYMPHOCYTES PERCENT AUTO 17 % (21-46); MONOCYTES ABSOLUTE AUTO 0.33 K/mm3 (0.16-1.47); MONOCYTES PERCENT AUTO 6 % (4-13); Mean Corpuscular HGB Conc 33.8 g/dL (31.5-36.5); Mean Corpuscular Volume 86 fL (80-100); Mean Platelet Volume 10.3 fL (9.1-12.4); NEUTROPHILS ABSOLUTE AUTO 4.39 K/mm3 (1.96-9.15); NEUTROPHILS PERCENT AUTO 74 % (41-73); Platelet Count 195 K/mm3 (150-400); RDW Coefficient Variation 15.9 % (11.7-14.2); RDW Standard Deviation 50.1 fL (35.1-46.3); Red Blood Cell Count 4.41 M/mm3 (4.30-5.90); White Blood Cell Count 5.91 K/mm3 (4.00-11.30)
[2023-05-06 05:04] VITALS: BP 116/58
[2023-05-06 05:11] LABS: Prothrombin Time Results 40.8 Sec (9.7-11.5)
[2023-05-06 05:15] LABS: Bun/Creatinine Ratio 22.8 (12.0-20.0); Calcium, Blood 9.3 mg/dL (8.5-10.1); Creatinine, Blood 1.01 mg/dL (0.60-1.20); Potassium, Blood 3.4 mmol/L (3.5-5.5)
--- NOTE | 2023-05-06 05:17 | NUR ---
SHIFT SUMMARY S/P PANCREATIC MASS. NO ACUTE CHANGES OVERNIGHT. VS WNL FOR PT. A&O x4. TOLERATING ORALS. USES URINAL INDEPENDENTLY TO EMPTY OSTOMY/ URINATE. LIQUID OUTPUT IN OSTOMY. MINIMAL URINE OUTPUT, PT ENCOURAGED TO INCREASE ORAL INTAKE. PT ON BEDREST THROUGHOUT THE NIGHT, REPOSITIONS IN BED INDEPENDENTLY. SEVERE JAUNDACE TO SKIN. PT MEDICATED PER EMAR FOR PAIN. PT STATES PAIN NOT ADEQUATELY COVERED AT THIS TIME. PT WOULD LIKE TO SPEAK TO DR FOR HOME PAIN MANAGEMENT. ANTICIPATED DISCHARGE LATER TODAY WITH HOME HEALTH. CALL LIGHT WITHIN REACH, BED IN LOWEST POSITION, WILL REPORT TO DAY RN.
[2023-05-06 05:25] LABS: International Normalized Ratio 4.22
[2023-05-06 07:44] VITALS: BP 123/68
--- NOTE | 2023-05-06 10:30 | NUR ---
DISCHARGE SUMMARY PT A&OX4, VSS/RA, CANDY PO, VOIDING/URINAL, MANAGES OWN OSTOMY/LIQUID BOWEL, PAIN TREATED PER EMAR, SELF TRANSFERS FROM BED/WC - SBA FOR SAFETY, IV DC'D. DC INS PROVIDED. PT REP UNDERSTANDING THOSE INSTRUCTONS INCLUDING HOSPICE WILL SEE AT HOME TODAY. LEFT FLOOR VIA WC WITH CAREGIVER TO GO HOME WITH ALL PERSONAL POSSESSIONS INCLUDING POLST.
== END 2023-05-06 11:00 | disposition hospice, home (50) | DRG 435 ==
LOC: ER 18:09 → SURS 18:10
PROVIDERS: Hospitalist; Student in an Organized Health Care Education/Training Program; ADMIT Internal Medicine
DX: C25.0 Malignant neoplasm of head of pancreas (principal); K83.1 Obstruction of bile duct; D68.61 Antiphospholipid syndrome; N39.0 Urinary tract infection, site not specified; E87.6 Hypokalemia; Z51.5 Encounter for palliative care; Z66 Do not resuscitate; K43.9 Ventral hernia without obstruction or gangrene; I25.10 Atherosclerotic heart disease of native coronary artery without angina pectoris; E78.5 Hyperlipidemia, unspecified; J45.909 Unspecified asthma, uncomplicated; D50.9 Iron deficiency anemia, unspecified; I70.209 Unspecified atherosclerosis of native arteries of extremities, unspecified extremity; K21.9 Gastro-esophageal reflux disease without esophagitis; F12.90 Cannabis use, unspecified, uncomplicated; G89.4 Chronic pain syndrome; Z91.018 Allergy to other foods; Z79.891 Long term (current) use of opiate analgesic; I25.2 Old myocardial infarction; Z86.73 Personal history of transient ischemic attack (TIA), and cerebral infarction without residual deficits; Z79.02 Long term (current) use of antithrombotics/antiplatelets; Z79.899 Other long term (current) drug therapy; Z98.890 Other specified postprocedural states; Z89.422 Acquired absence of other left toe(s); Z87.891 Personal history of nicotine dependence
CPT/HCPCS: 36415; 74176; 80048; 80053; 81001; 83690; 85025; 85610; 87086; 96374; 96375; 99285-25; A9270; J0696; J3010

== ENCOUNTER 2023-05-11 19:17 | Inpatient (IN) | payer OTHER ==
[~2023-05-11] VITALS: Ht 182.9 cm; Wt 68.0 kg
[~2023-05-11 19:17] MED LIST changes: +ATOR40TA PO; +B-121000 MC3 PO; +CALCIUM CARBON650 MG PO; +FENTANYL1 EA11 TOP; +LACT PO; +THERA-D2000 UNIT PO; +XARELTO2.5 M1 PO
[2023-05-12 02:19] VITALS: BP 107/64
--- NOTE | 2023-05-12 03:58 | NUR ---
SHIFT SUMMERY, PT CAME TO FLOOR AND WAS TRANSFRED BY 4 PERSONS AND SLIDER SHEET. PT VERY PAINFUL. PTS RIGHT HIP FX. PT VERY JAUNDICE. PT IS ALERT AND ORIENTED BUT DROWSEY. HRRR, LUNGS SOUND CTA BILAT. BOWEL TONES PRESENT. PT HAS AN OSTOMY AND APPARENT HERIA TO ABD. PT MISSING 2 TOES TO LEFT FOOT. PT WEARING DEPENDS. NEW 24 G IV PLACED TO PTS RIGHT WRIST /HAND, IVF INFUSING. DNR BAND PLSCED PT HAD STATED HE DID NOT WANT ANY CPR IF FOUND DOWN.
[2023-05-12] MEDS ORDERED: PANTOPRAZOLE SO20 M1 PO (04:10)
[2023-05-12] MEDS ORDERED: SENN187 PO (04:11)
[2023-05-12] MEDS ORDERED: NARCAN4 M1 (04:12)
[2023-05-12] MEDS ORDERED: MENTHOL TOP (04:15)
[2023-05-12] MEDS ORDERED: CAMPHOR TOP (04:15)
[2023-05-12 06:12] LABS: BASOPHILS ABSOLUTE AUTO 0.04 K/mm3 (0.00-0.23); BASOPHILS PERCENT AUTO 1 % (0-2); EOSINOPHILS ABSOLUTE AUTO 0.03 K/mm3 (0.00-0.68); EOSINOPHILS PERCENT AUTO 0 % (0-6); Hematocrit 34.1 % (37.0-53.0); Hemoglobin 11.4 g/dL (13.5-17.5); IMMATURE GRAN ABSOLUTE AUTO 0.03 K/mm3 (0.00-0.10); IMMATURE GRAN PERCENT AUTO 0 % (0-1); LYMPHOCYTES ABSOLUTE AUTO 0.76 K/mm3 (0.84-5.20); LYMPHOCYTES PERCENT AUTO 11 % (21-46); MONOCYTES ABSOLUTE AUTO 0.36 K/mm3 (0.16-1.47); MONOCYTES PERCENT AUTO 5 % (4-13); Mean Corpuscular HGB 29.1 pg (26.0-34.0); Mean Corpuscular HGB Conc 33.4 g/dL (31.5-36.5); Mean Corpuscular Volume 87 fL (80-100); Mean Platelet Volume 10.5 fL (9.1-12.4); NEUTROPHILS ABSOLUTE AUTO 5.92 K/mm3 (1.96-9.15); NEUTROPHILS PERCENT AUTO 83 % (41-73); Platelet Count 211 K/mm3 (150-400); RDW Coefficient Variation 18.2 % (11.7-14.2); RDW Standard Deviation 57.1 fL (35.1-46.3); Red Blood Cell Count 3.92 M/mm3 (4.30-5.90); White Blood Cell Count 7.14 K/mm3 (4.00-11.30)
[2023-05-12 06:18] LABS: International Normalized Ratio 2.48; Prothrombin Time Results 24.7 Sec (9.7-11.5)
[2023-05-12 06:57] LABS: Albumin, Blood 2.1 g/dL (3.4-5.0); Albumin/Globulin Ratio 0.5 (0.8-1.8); Bilirubin, Total 23.5 mg/dL (0.1-1.0); Calcium, Blood 8.9 mg/dL (8.5-10.1); Creatinine, Blood 1.05 mg/dL (0.60-1.20); Potassium, Blood 3.1 mmol/L (3.5-5.5); Total Protein, Blood 6.1 g/dL (6.4-8.2)
[2023-05-12 08:05] VITALS: BP 117/60
[2023-05-12 14:51] VITALS: BP 116/64
--- NOTE | 2023-05-12 18:41 | NUR ---
PATIENT A/OX4, CALM AND COOPERATIVE WITH CARE. DR MIMS AT BEDSIDE TO DISCUSS POSSIBLE SURGERY TO REPAIR R HIP AND PATIENT CHOSE NOT TO DO ANY INTERVENTION. R HIP AND ABDOMINAL PAIN, TREATING WITH IV FENTANYL AND TRAMADOL. PATIENT ALSO HAS A FENTANYL PATCH IN PLACE THAT WAS CHANGED TODAY. SKIN JAUNDICED. LARGE ABDOMINAL HERNIA AND COLOSTOMY TO LLQ. LR AT 75ML/HR. FAMILY AT BEDSIDE THROUGHOUT THE DAY.
[2023-05-12 19:34] VITALS: BP 105/56
[2023-05-13 04:47] VITALS: BP 113/65
--- NOTE | 2023-05-13 04:49 | NUR ---
SHIFT SUMMERY. PT VERY PAINFULL PAIN MEDS NOT SEEMING TO HELP MUCH. PT STATED BEFORE PAIN MEDS PAIN A 01/02 AND AFTER A 12/02. CALLED HOSPITALIST AND GOT PERCOCET Q 4 PRN AND INCREASE IN TIME AND AAMOUNT OF FENT. AFTER MEDICATED PT SEEMED VERY RELAXED AND HAS SLEPT FOR SEVERAL HRS. JUST GAVE PT HIS 2ND DOSE OF PERCOCET. CALL LIGHT I REACH.
--- NOTE | 2023-05-13 04:56 | NUR ---
SHIFT SUMMERY. PT DURING FIRST OF SHIFT NOT RESPONDING BUT TIME PROGRESSED PT STARTED TO OPEN EYES AND ASK FOR WATER. PT NPO SO ORAL SPONGES GIVEN TO PT. PT THEN STATED HE WAS IN A LOT OF PAIN, 0.5 MG OF DILAUDID GIVEN. PT HAD BEEN GIVEN 1 MG AT 0400 THIS AM AND THEN PT WAS NON RESPOSIVE TILL ABOUT 2200 - 2300. SO TRYED TO NOT GIVE TO LG A DOSE. MED GIVEN AT 0020 AND AT 0120 PT CO 9-10 PAIN TO BACK PT REPOSIONED PILLOS PLACED FOR COMFORT ICE APPLYED TO BACK LEGS ELEVATED BUT DID NOT HELP. OTHER DOSE GIVEN BUT ONLY SEEMED TO HELP FOR ABOUT AN HR. PT NOW GIVEN 3RD DOSE OF 0.5 MG DILAUDID, AND HEATING PAD IN ROOM TO TRY TO SEE IF IT WILL HELP PTS BACK. PT STAED PAIN IS TO LOWER BACK AND IS A STABBING PAIN. CALL LIGHT IN REACH. BED ALARM ON
[2023-05-13 07:36] VITALS: BP 118/71
[2023-05-13 07:41] LABS: BASOPHILS ABSOLUTE AUTO 0.03 K/mm3 (0.00-0.23); BASOPHILS PERCENT AUTO 0 % (0-2); EOSINOPHILS ABSOLUTE AUTO 0.14 K/mm3 (0.00-0.68); EOSINOPHILS PERCENT AUTO 2 % (0-6); Hematocrit 31.6 % (37.0-53.0); Hemoglobin 10.5 g/dL (13.5-17.5); IMMATURE GRAN ABSOLUTE AUTO 0.04 K/mm3 (0.00-0.10); IMMATURE GRAN PERCENT AUTO 1 % (0-1); LYMPHOCYTES ABSOLUTE AUTO 0.69 K/mm3 (0.84-5.20); LYMPHOCYTES PERCENT AUTO 9 % (21-46); MONOCYTES ABSOLUTE AUTO 0.38 K/mm3 (0.16-1.47); MONOCYTES PERCENT AUTO 5 % (4-13); Mean Corpuscular HGB 29.4 pg (26.0-34.0); Mean Corpuscular HGB Conc 33.2 g/dL (31.5-36.5); Mean Corpuscular Volume 89 fL (80-100); Mean Platelet Volume 11.1 fL (9.1-12.4); NEUTROPHILS ABSOLUTE AUTO 6.41 K/mm3 (1.96-9.15); NEUTROPHILS PERCENT AUTO 83 % (41-73); Platelet Count 223 K/mm3 (150-400); RDW Coefficient Variation 18.3 % (11.7-14.2); RDW Standard Deviation 58.7 fL (35.1-46.3); Red Blood Cell Count 3.57 M/mm3 (4.30-5.90); White Blood Cell Count 7.69 K/mm3 (4.00-11.30)
[2023-05-13 08:19] LABS: Albumin, Blood 1.9 g/dL (3.4-5.0); Albumin/Globulin Ratio 0.5 (0.8-1.8); Bilirubin, Total 22.2 mg/dL (0.1-1.0); Bun/Creatinine Ratio 15.8 (12.0-20.0); Calcium, Blood 8.3 mg/dL (8.5-10.1); Creatinine, Blood 0.95 mg/dL (0.60-1.20); Globulin, Blood 3.8 g/dL (2.2-4.0); Potassium, Blood 3.1 mmol/L (3.5-5.5); Total Protein, Blood 5.7 g/dL (6.4-8.2)
[2023-05-13 08:24] LABS: International Normalized Ratio 3.36; Prothrombin Time Results 32.9 Sec (9.7-11.5)
--- NOTE | 2023-05-13 14:52 | NUR ---
HOME CAREGIVER VISITED, PATIENT CHANGED TO REGULAR DIET, DENIES N/V FROM [place] REPOSTIONED THROUGH THE DAY, PLEASANT AND COOPERATIVE TO CARE CALL LIGHT WITH IN REACH
--- NOTE | 2023-05-13 18:02 | NUR ---
NO ACUTE CHANGES, DNR, REFUSED SURGERY AGAIN THIS AM, PATIENT ON HOSPITCE AT HOME FOR ADVANCE PANCREATIC CANCER, VERY JAUNDICE, URINE DARK COFFEE COLOR, VSS, ALERT AND OREINTED TO STAFF, SELF, PLACE. HOME CAREGIVER VISITED TODAY. MEDICATED WITH PERCOCET THROUGH THE DAY, FENATNYL PATCH IN PLACE, R WRIST LR AT 75ML/HR. PATIENT REPORTS ADEQUATE PAIN CONTROL, CALL LIGHT WITH IN REACH, WILL RELAY TO PM RN
[2023-05-13 18:03] VITALS: BP 121/63
[2023-05-13 19:57] VITALS: BP 117/56
[2023-05-14 05:07] VITALS: BP 110/64
--- NOTE | 2023-05-14 05:31 | NUR ---
SHIFT SUMMARY: PT IS ADMITTED FOR RIGHT HIP FX AND IS A DNR. IS ALERT AND ABLE TO MAKE NEEDS KNOWN. ADLs HAVE BEEN 1P THROUGHOUT SHIFT. IV TO RIGHT WRIST IS PATENT WITH DRESSING THAT IS CDI. CURRENTLY RUNNING LR @ 75. OSTOMY TO LOWER RIGHT INTACT. WAS GIVEN PRN PAIN MANAGEMENT X2.
[2023-05-14 06:20] LABS: International Normalized Ratio 3.58
[2023-05-14 07:06] VITALS: BP 105/66
--- NOTE | 2023-05-14 13:02 | NUR ---
MET WITH STACIA AND THE SURGON TO DISCUSS TREATMENT OPTIONS. WE DISCUSSED PROS AND CONS OF HAVING THE SURGERY. PATIENT DOES NOT WANT TO HAVE SURGERY AT THIS TIME. BEDSIDE RN HAS REPORTED THAT THEY HAVE BEEN ABLE TO REPOSITION STACIA WITH LITTLE DISCOMFORT. HE HAS BEEN HAVING REGULAR BOWEL MOVMENTS. BEDSIDE RN WILL CONTACT CAREGIVERS TO UPDATE.
[2023-05-14 15:42] VITALS: BP 116/70
--- NOTE | 2023-05-14 17:17 | NUR ---
PATIETN ALERT AND ORIENTED, MAKES NEEDS CLEARLY KNOWN, DR CARMONA AND PALLIATIVE CARE RN CLARIFIED WITH PATIENT THAT HE DOES NOT WANT THE PROCEDURE DONE AND ONLY WANTS PAIN CONTROL, PATIENT IS HOSPICE CARE AT HOME, HOSPICE REFFERAL ORDER. PATIENT INDEPENDANT WITH OSTOMY CARE, YUDITH FORMED STOOL TODAY, MORE JAUNDICE SKIN TODAY, SCLERAL ICTERUS PRESENT, MEDICATED WITH PERCOCET ND FENTANYL PRN FOR PAIN, REPOSITONED, MINIMAL MOVEMENT PATIENT GRIMACES, CSM+, MOVES LOPEZ TOES, RIGHT PEDAL PULSE PRESENT. COMPLAINS OF PAIN GENRALIZED IN JOINTS AND ABD, CALL LIGHT WITH IN REACH, WILL RELAY TO PM RN
[2023-05-14 19:55] VITALS: BP 117/65
[2023-05-15 04:27] VITALS: BP 112/75
--- NOTE | 2023-05-15 05:37 | NUR ---
SHIFT SUMMARY: PT IS ADMITTED FOR RIGHT HIP FX AND IS A DNR. IS ALERT AND ABLE TO MAKE NEEDS KNOWN. HAS BEEN A 2P FOR ADLs. IV TO RIGHT HAND IS PATENT WITH DRESSING THAT IS CDI. OSTOMY INTACT. GIVEN PRN PAIN MANAGEMENT X2. HE DOES HAVE A DARKER SHADE OF JAUNDICE THAN THE NIGHT BEFORE.
[2023-05-15 07:12] VITALS: BP 102/55
--- NOTE | 2023-05-15 16:41 | NUR ---
PATIENT STRETCHER VAN TO BE HERE AT 1700, ALERT AND ORIENTED, CAREGIVER KATHARINA BROUGHT CLOTHES AND DENIED ANY QUESTIONS,PATIETN GOING HOME THE RESUMED HOSPICE CARE
--- NOTE | 2023-05-15 18:19 | NUR ---
PATIENT DISCHARGED VIA STRETCHER, DNR, HOME WITH HOSPICE, REPORTED TO TRANSPORT TECHS
== END 2023-05-15 17:23 | disposition hospice, home (50) | DRG 535 ==
LOC: ER 19:17 → SURS 19:18 → MEDS 19:18 → SURS 19:18 → MEDS 05-12 01:55
PROVIDERS: Internal Medicine; ADMIT Student in an Organized Health Care Education/Training Program
DX: S72.011A Unspecified intracapsular fracture of right femur, initial encounter for closed fracture (principal); K83.1 Obstruction of bile duct; C25.9 Malignant neoplasm of pancreas, unspecified; D68.61 Antiphospholipid syndrome; D68.9 Coagulation defect, unspecified; Z51.5 Encounter for palliative care; Z66 Do not resuscitate; I25.10 Atherosclerotic heart disease of native coronary artery without angina pectoris; I73.9 Peripheral vascular disease, unspecified; W18.30XA Fall on same level, unspecified, initial encounter; Y92.129 Unspecified place in nursing home as the place of occurrence of the external cause; I10 Essential (primary) hypertension; E78.5 Hyperlipidemia, unspecified; J45.909 Unspecified asthma, uncomplicated; K21.9 Gastro-esophageal reflux disease without esophagitis; G89.4 Chronic pain syndrome; E87.6 Hypokalemia; D64.9 Anemia, unspecified; I25.2 Old myocardial infarction; Z74.01 Bed confinement status; Z86.73 Personal history of transient ischemic attack (TIA), and cerebral infarction without residual deficits; Z79.01 Long term (current) use of anticoagulants; Z89.429 Acquired absence of other toe(s), unspecified side; Z79.02 Long term (current) use of antithrombotics/antiplatelets; Z79.891 Long term (current) use of opiate analgesic; Z28.21 Immunization not carried out because of patient refusal
CPT/HCPCS: 36415; 72192; 73502; 80053; 83735; 85025; 85610; 94760; 94762; 96374; 99285-25; A9270; G0378; J1885; J1940; J3010; J7120